=== PATIENT | male | born 1935 | race African-American/Black ===

== ENCOUNTER → 2016-12-22 | Outpatient (CLI) | payer MEDICARE ==
[~2016-12-22] MED LIST: AMLO1TAB95 PO; ASPI-482 PO; CRESTOR5 MG PO
--- NOTE | 2016-12-22 11:47 | RAD ---
Right hip, 2 views, 12/22/2016: History: Back and hip pain The bony structures are demineralized. No fracture or dislocation is evident. There is mild narrowing of the right hip joint. Numerous prostatic calcifications are present. IMPRESSION: No acute hip abnormality is detected. Lumbar spine, 3 views, 12/22/2016: History: Back and leg pain There is a mild right convexity lumbar scoliosis. The lumbar vertebral heights are well-maintained. There is moderate disc space narrowing with extensive endplate sclerosis and marginal spurring at L1-2 and L2-3. There is a lesser degree of spurring in the lower lumbar spine. There are moderate degenerative changes involving the facet joints bilaterally, particularly in the lower lumbar region. Aortoiliac calcific plaquing is present. IMPRESSION: 1. Moderate multilevel degenerative change. 2. Mild lumbar scoliosis. 3. No acute bony abnormality is detected.
== END | disposition home or self-care (01) ==
LOC: DXRADRC 10:56
PROVIDERS: ATTEND Nurse Practitioner Family
DX: M16.11 Unilateral primary osteoarthritis, right hip (principal); M41.86 Other forms of scoliosis, lumbar region
CPT/HCPCS: 72100; 73502

== ENCOUNTER 2017-05-25 20:20 | Inpatient (IN) | payer MEDICARE ==
[~2017-05-25] VITALS: Ht 165.1 cm; Wt 61.2 kg
[2017-05-25 20:56] LABS: BASO # 0.1 x10^3/uL (0.0-0.2); BASO % 1 % (0-3); EOS # 0.3 x10^3/uL (0.0-0.7); EOS % 4 % (0-3); HEMATOCRIT 46.4 % (39.0-53.0); HEMOGLOBIN 15.8 g/dL (13.0-17.5); LYMPH # 2.9 x10^3/uL (1.0-4.8); LYMPH % 39 % (24-48); MEAN CORPUSCULAR HEMOGLOBIN 30 pg (25-35); MEAN CORPUSCULAR HGB CONC 34 g/dL (31-37); MEAN CORPUSCULAR VOLUME 89 fL (79-100); MONO # 0.5 x10^3/uL (0.0-1.1); MONO % 7 % (0-9); NEUT # 3.6 x10^3uL (1.8-7.7); NEUT % 49 % (31-73); PLATELET COUNT 264 x10^3/uL (140-400); RED BLOOD COUNT 5.24 x10^6/uL (4.30-5.70); RED CELL DISTRIBUTION WIDTH 13.4 % (11.5-14.5); WHITE BLOOD COUNT 7.4 x10^3/uL (4.0-11.0)
--- NOTE | 2017-05-25 21:04 | RAD ---
CT scan of the head without contrast 05/25/2017 Clinical History: Weakness, fatigue and headaches. Technique: Unenhanced, contiguous, 5 mm axial sections were obtained through the head. Findings: No previous imaging studies are available for comparison. There is generalized parenchymal atrophy. Areas of decreased attenuation are seen within the periventricular and subcortical white matter of both cerebral hemispheres consistent with areas of small vessel ischemic disease. No acute parenchymal abnormality is seen. No extra-axial fluid collection is noted. No skull fracture is seen. Impression: No acute intracranial abnormality is seen. Electronically signed by: Adonis Christopher MD (05/25/2017 9:01 PM) [facility]
[2017-05-25 21:08] LABS: ALBUMIN 3.9 g/dL (3.4-5.0); ALBUMIN/GLOBULIN RATIO 0.8 (1.0-1.7); CALCIUM 9.7 mg/dL (8.5-10.1); CREATININE 1.3 mg/dL (0.7-1.3); GFR 64.3; POTASSIUM 3.8 mmol/L (3.5-5.1); TOTAL BILIRUBIN 0.7 mg/dL (0.2-1.0); TOTAL PROTEIN 8.9 g/dL (6.4-8.2)
--- NOTE | 2017-05-25 21:23 | ED.ADGEN ---
Adult General Chief Complaint Chief Complaint Left sided weakness HPI HPI Patient is a 81-year-old -Citizen Of The [place] male with h /o and prostate cancer and CVA who presents with left upper left lower extremity and left facial weakness sleep approximately 36 hours ago. Patient has history ofbe affecting left side. Patient states he's had difficulty walking been dragging his left leg. Also notable left facial droop which is new according to family members. Patientvision, difficulty swallowing, coughing, choking episodes, shortness of breath, palpitations history of A. fib or arrhythmia. Patient is not currently on anticoagulation therapy. No other acute symptoms or complaints. Patient's delayed in coming to the emergency department as he did not initially intend to seek care. However, upon family members visiting the patients patient coming to the emergency department. The patient is now agreeable to receiving care. Review of Systems Review of Systems ROS as per HPI. All other review symptoms are negative. All other systems were reviewed and found to be within normal limits, except as documented in this note. Allergies Allergies Allergies Coded Allergies Type Severity Reaction Last Updated Verified No Known Drug Allergies 01/22/14 No Physical Exam Physical Exam Constitutional: Well developed, well nourished, no acute distress, non-toxic appearance. [] HENT: Normocephalic, atraumatic, bilateral external ears normal, oropharynx moist, no oral exudates, nose normal. [] Eyes: PERRLA, EOMI, conjunctiva normal, no discharge. [] Neck: Normal range of motion, no tenderness, supple, no stridor. [] Cardiovascular:Heart rate regular rhythm, no murmur [] Lungs & Thorax: Bilateral breath sounds clear to auscultation [] Abdomen: Bowel sounds normal, soft, no tenderness. [] Skin: Warm, dry, no erythema. [] Back: No tenderness, no CVA tenderness. [] Extremities: No tenderness, no cyanosis, no clubbing, ROM intact, no edema. [] Neurologic: Alert and oriented X 3, Upper extremity weakness, left lower extremity weakness and decreased sensation. NIH stroke score of 10 per ER nurse assessment.[] Current Patient Data Vital Signs Vital Signs Date Time Temp Pulse Resp B/P (MAP) Pulse Ox O2 Delivery O2 Flow Rate FiO2 05/25/17 21:21 87 26 181/116 (137) 100 Room Air 05/25/17 20:20 98.3 Lab Results Laboratory Tests Test 05/25/17 20:37 05/25/17 21:03 White Blood Count 7.4 x10^3/uL (4.0-11.0) Red Blood Count 5.24 x10^6/uL (4.30-5.70) Hemoglobin 15.8 g/dL (13.0-17.5) Hematocrit 46.4 % (39.0-53.0) Mean Corpuscular Volume 89 fL (79-100) Mean Corpuscular Hemoglobin 30 pg (25-35) Mean Corpuscular Hemoglobin Concent 34 g/dL (31-37) Red Cell Distribution Width 13.4 % (11.5-14.5) Platelet Count 264 x10^3/uL (140-400) Neutrophils (%) (Auto) 49 % (31-73) Lymphocytes (%) (Auto) 39 % (24-48) Monocytes (%) (Auto) 7 % (0-9) Eosinophils (%) (Auto) 4 % (0-3) H Basophils (%) (Auto) 1 % (0-3) Neutrophils # (Auto) 3.6 x10^3uL (1.8-7.7) Lymphocytes # (Auto) 2.9 x10^3/uL (1.0-4.8) Monocytes # (Auto) 0.5 x10^3/uL (0.0-1.1) Eosinophils # (Auto) 0.3 x10^3/uL (0.0-0.7) Basophils # (Auto) 0.1 x10^3/uL (0.0-0.2) Sodium Level 141 mmol/L (136-145) Potassium Level 3.8 mmol/L (3.5-5.1) Chloride Level 103 mmol/L (98-107) Carbon Dioxide Level 28 mmol/L (21-32) Anion Gap 10 (6-14) Blood Urea Nitrogen 20 mg/dL (8-26) Creatinine 1.3 mg/dL (0.7-1.3) Estimated GFR (Cockcroft-Gault) 64.3 BUN/Creatinine Ratio 15 (6-20) Glucose Level 133 mg/dL (70-99) H Calcium Level 9.7 mg/dL (8.5-10.1) Total Bilirubin 0.7 mg/dL (0.2-1.0) Aspartate Amino Transferase (AST) 22 U/L (15-37) Alanine Aminotransferase (ALT) 21 U/L (16-63) Alkaline Phosphatase 104 U/L (46-116) Total Protein 8.9 g/dL (6.4-8.2) H Albumin 3.9 g/dL (3.4-5.0) Albumin/Globulin Ratio 0.8 (1.0-1.7) L Prothrombin Time 10.6 SEC (9.4-11.4) Prothrombin Time INR 1.0 (0.9-1.1) PTT 21 SEC (23-33) L EKG EKG [EKG: Sinus rhythm, reviewed.] Radiology/Procedures Radiology/Procedures [CT head: No acute findings per radiology report.] Course & Med Decision Making Course & Med Decision Making Pertinent Labs and Imaging studies reviewed. (See chart for details) [Patient With left-sided weakness with facial droop, onset greater than 36 hours prior to ED arrival. Patient is not a candidate for intervention at this time. NIH stroke score of 10 which I suspect is accommodation of acute and chronic deficits. Patient given aspirin. Will admit to the ICU. Dr. Barnett to see. ] Final Impression Final Impression [1. Cva 2. left sided weakness] Problems: Dragon Disclaimer Dragon Disclaimer This electronic medical record was generated, in whole or in part, using a voice recognition dictation system. KAUSHIK THAKUR DO May 25, 2017 21:23
[2017-05-25] MEDS ORDERED: ONDANSETRON PF 4 MG/2 ML VIAL. IV PRN (21:45)
[2017-05-25 23:00] VITALS: BP 138/61
[2017-05-26] MEDS ORDERED: TIMO10DR5 EACHEYE (01:04)
[2017-05-26] MEDS ORDERED: ATOR20TA58 PO (01:04)
[2017-05-26] MEDS ORDERED: METF10002 PO (01:04)
[2017-05-26] MEDS ORDERED: LOSA100T6 PO (01:04)
[2017-05-26 01:49] VITALS: BP 138/61
[2017-05-26 03:06] VITALS: BP 136/64
--- NOTE | 2017-05-26 06:20 | EKG ---
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
[2017-05-26 06:45] LABS: BASO % 1 % (0-3); EOS # 0.2 x10^3/uL (0.0-0.7); EOS % 3 % (0-3); HEMATOCRIT 42.1 % (39.0-53.0); HEMOGLOBIN 14.2 g/dL (13.0-17.5); LYMPH # 1.9 x10^3/uL (1.0-4.8); LYMPH % 34 % (24-48); MEAN CORPUSCULAR HEMOGLOBIN 30 pg (25-35); MEAN CORPUSCULAR HGB CONC 34 g/dL (31-37); MEAN CORPUSCULAR VOLUME 89 fL (79-100); MONO # 0.4 x10^3/uL (0.0-1.1); MONO % 8 % (0-9); NEUT # 3.1 x10^3uL (1.8-7.7); NEUT % 54 % (31-73); PLATELET COUNT 235 x10^3/uL (140-400); RED BLOOD COUNT 4.75 x10^6/uL (4.30-5.70); RED CELL DISTRIBUTION WIDTH 13.3 % (11.5-14.5); WHITE BLOOD COUNT 5.7 x10^3/uL (4.0-11.0)
[2017-05-26 06:55] LABS: CALCIUM 8.9 mg/dL (8.5-10.1); CREATININE 1.1 mg/dL (0.7-1.3); GFR 77.9; POTASSIUM 3.8 mmol/L (3.5-5.1)
[2017-05-26] MEDS: metFORMIN 500 MG TABLET PO SCH (08:52)
[2017-05-26] MEDS: ATORVASTATIN CALCIUM 20 MG TABLET PO SCH (08:52)
[2017-05-26] MEDS: LOSARTAN 50 MG TABLET. PO SCH (08:52)
[2017-05-26] MEDS: TIMOLOL 0.5% OPHTH SOLUTION 5ML BOTTLE. OU SCH ×2 (08:52→20:47)
--- NOTE | 2017-05-26 08:52 | RAD ---
INDICATION: SOA COMPARISON: 07/04/2005 FINDINGS: Single view of chest obtained. Calcific atherosclerosis without enlargement of cardiac silhouette. Multiple calcified lymph nodes in mediastinum and calcified nodules which can be the sequela of old granulomatous disease. There are some sclerotic foci seen at the osseous structures including partially visualized humerus bilaterally. No definite new focal airspace consolidation IMPRESSION: No definite new focal airspace consolidation. Calcified lymph nodes in mediastinum and calcified nodules in the lungs which can be sequela of old granulomatous disease. There is some suspected sclerotic foci at the partially visualized proximal humerus. Most likely cause is bone island unless the patient has a history of neoplasm.
[2017-05-26] MEDS ORDERED: ASPIRIN ENTERIC COATED 81 MG TABLET.DR. PO SCH (09:00)
[2017-05-26 11:34] VITALS: BP 175/101
[2017-05-26] MEDS: ASPIRIN 325 MG TABLET PO SCH (13:06)
--- NOTE | 2017-05-26 15:26 | RAD ---
INDICATION: Left-sided weakness COMPARISON: None. TECHNIQUE: Color, grayscale and doppler ultrasound images obtained of the carotid system bilaterally. Percent stenosis is estimated using criteria that correlates with NASCET methodology. FINDINGS: Peak systolic velocities are as follows in cm/s: Right Carotid System: CCA: 96 ICA: 75 ECA: 50 ICA/CCA Ratio 1.3 Left Carotid System: CCA: 78 ICA: 87 ECA: 53 ICA/CCA Ratio 1.3 Vertebral arteries are antegrade bilaterally. There is some scattered plaque seen as well as intimal thickening. IMPRESSION: 1. No hemodynamically significant stenosis of the internal carotid arteries bilaterally.
--- NOTE | 2017-05-26 17:09 | HP ---
ADMIT DATE: 05/25/2017 HISTORY OF PRESENT ILLNESS: The patient is an 81-year-old -[place] male patient who apparently was brought to the Emergency Room by his family who noted that he has left upper and left lower extremity weakness and left facial weakness that started about 36 hours ago before he arrived. The patient has history of left-sided CVA that has been happened about 20-25 years ago. His daughter noted that when he is walking, was dragging his left leg. She also noted that he has left facial droop that is new according to the family members; however, the patient denied any other complaints, particularly denied any headache, difficulty swallowing, any change in his vision and the patient is not on any anticoagulation. He was evaluated in the Emergency Room, has had a CT scan of the head, which showed that there is generalized parenchymal atrophy, areas of decreased attenuation are seen within the periventricular and subcortical white matter of both cerebral hemispheres consistent with areas of small vessel ischemic disease, no acute parenchymal abnormality seen. No extraaxial fluid collection is noted. No skull fracture is seen. The patient was admitted for further evaluation to arrange for bilateral carotid Doppler, check her fasting lipid profile, to consult Dr. Park and to continue with all his other medications. Obviously, he was not a candidate for any thrombolytic therapy given that he was out of the window of therapy. 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 PAST SURGICAL HISTORY: Significant for bilateral cataract extraction. ALLERGIES: No known drug allergies. MEDICATIONS: He is currently on aspirin 81 mg once a day, atorvastatin 20 mg at bedtime, losartan potassium 100 mg once a day, metformin 1000 mg with breakfast, timolol maleate for Timoptic 1 drop to both eyes twice a day. FAMILY HISTORY: He has two brothers, older one of prostate cancer and one of sepsis. One sister younger and healthy. SOCIAL HISTORY: He is , lives with his , has 5 daughters and 4 sons. He is an ex-smoker, quit about 25 years ago, used to smoke a pack a day and smoked for a long time. He also used to be an ex-alcoholic, quit drinking alcohol 25 years ago. 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 REVIEW OF SYSTEMS: He has bilateral cataract extraction and also glaucoma, but denied any macular degeneration. Denied any earache, tinnitus or sensorineural deafness. Denied any nosebleeds, stuffy nose or postnasal drip. Denied any sore throat, sore tongue, toothache, hoarseness of voice or difficulty swallowing. Denied any nausea, vomiting, diarrhea or constipation. Denied any hematemesis, melena or hematochezia. Denied any dysuria, frequency or hematuria. Denied any chest pain, shortness of breath, orthopnea, paroxysmal nocturnal dyspnea. Denied any cough, phlegm or hemoptysis. Denied any chills, rigors or fever when I examined him. PHYSICAL EXAMINATION: GENERAL: On arrival to the Emergency Room, he looked well and was clearly in no apparent respiratory distress, pale, but not jaundiced, cyanosis, or thyromegaly. No jugular venous distention. No limb edema. VITAL SIGNS: His heart rate was 85, blood pressure was 169/93, temperature was 98, respiratory rate was 19, and oxygen saturation was 97%. HEAD, EYES, EARS, NOSE, AND THROAT: Showed normocephalic, atraumatic. NECK: Supple. HEART: Showed normal first and second heart sounds with no gallop, rub or murmur. CHEST: Clear to auscultation. No crepitation or rhonchi. ABDOMEN: Distended, soft, and nontender. NEUROLOGIC: He was awake, alert, responding appropriately. He has left-sided facial droop and left-sided weakness, which is about 4/5 on the left upper and left lower extremity. LABORATORY DATA: His lab work on admission showed that his white cell count was 7400, hemoglobin 15.8, hematocrit 46, MCV 89, and platelet count 264,000. His serum sodium 141, potassium 3.8, chloride 103, bicarbonate 28, anion gap of 10, BUN 20, creatinine 1.3, estimated GFR was 64 mL per minute. His glucose was 133, calcium was 9.7. Total bilirubin, AST, ALT, alkaline phosphatase were normal. Total protein was 8.9, albumin was 3.9. His prothrombin time was 10.6, INR 1, aPTT was 21. His CT scan of the head showed that there is generalized parenchymal atrophy, areas of decreased attenuation are seen within the periventricular and subcortical white matter of both cerebral hemispheres consistent with areas more vessel ischemic disease, no acute parenchymal abnormality seen. No extraaxial fluid collection is noted. No skull fracture is seen. He did have a chest x-ray, which showed that he has no definite new focal airspace consolidation, calcific lymph nodes in the mediastinum and calcified nodules in the lung, which can be sequelae of old granulomatous disease. There is some suspected sclerotic foci at the partially visualized proximal humerus most likely because of bone, and the patient has history of neoplasm. IMPRESSION: In summary, this is an 81-year-old -[place] male patient who came with left-sided facial droop with left-sided weakness about 36 hours after the onset of the symptoms. He is ambulatory, although he obviously has weakness in the left side. CT scan showed no evidence of acute infarct or intracranial hemorrhage. PLAN: My plan is to arrange for him to have a carotid Doppler ultrasound. We will consult Dr. Park, check his fasting lipid profile, check hemoglobin A1c, and consult Physical and occupational therapy. The patient might benefit from rehabilitation probably in a swing bed. THUY FLORES MD DR: BONG/wolfgang JOB#: [id number] / [id number]
[2017-05-26 17:30] VITALS: BP 148/86
[2017-05-27 06:28] LABS: ANION GAP 8 (6-14); BLOOD UREA NITROGEN 19 mg/dL (8-26); CALCIUM 8.8 mg/dL (8.5-10.1); CARBON DIOXIDE 28 mmol/L (21-32); CHLORIDE 108 mmol/L (98-107); CREATININE 1.2 mg/dL (0.7-1.3); GFR 70.5; GLUCOSE 116 mg/dL (70-99); POTASSIUM 3.7 mmol/L (3.5-5.1); SODIUM 144 mmol/L (136-145)
[2017-05-27 06:30] VITALS: BP 139/71
[2017-05-27] MEDS: TIMOLOL 0.5% OPHTH SOLUTION 5ML BOTTLE. OU SCH ×2 (08:17→20:20)
[2017-05-27] MEDS: metFORMIN 500 MG TABLET PO SCH (08:17)
[2017-05-27] MEDS: ASPIRIN 325 MG TABLET PO SCH (08:17)
[2017-05-27] MEDS: LOSARTAN 50 MG TABLET. PO SCH (08:18)
[2017-05-27] MEDS: ATORVASTATIN CALCIUM 20 MG TABLET PO SCH (08:18)
[2017-05-27 09:24] LABS: C REACTIVE PROTEIN < 0.5 mg/L (0-3.3)
--- NOTE | 2017-05-27 11:18 | PN ---
DATE: 05/26/2017 SUBJECTIVE: The patient is resting, sitting propped up in bed, in no apparent respiratory distress. He is awake and alert. On questioning him, he denied any complaint. Continued to have some weakness in the left upper and left lower extremity. However, he was able to ambulate with physical therapy with standby assist. PHYSICAL EXAMINATION: GENERAL: When I examined him this afternoon, he looked well and was slightly pale, but no jaundice, cyanosis, or thyromegaly. No jugular venous distension. No lower limb edema. VITAL SIGNS: His heart rate was 83, blood pressure 158/87, temperature was 98, respiratory rate was 19 and oxygen saturation was 100% on room air. HEAD, EYES, EARS, NOSE AND THROAT: Normocephalic, atraumatic. NECK: Supple. HEART: Showed normal first and second heart sounds with no gallop, rub or murmur. CHEST: Clear to auscultation. No crepitation or rhonchi. ABDOMEN: Distended, soft, nontender. No guarding or rigidity. No organomegaly. Hernial orifices intact. Bowel sounds normal. NEUROLOGIC: He is awake, alert, responding appropriately, has left-sided facial droop, left-sided hemiparesis. His intake and output incompletely recorded. LABORATORY DATA: As of this morning showed a white cell count 5700, hemoglobin 14, hematocrit 42, MCV 89 and platelet count of 235,000. His serum sodium 143, potassium 3.8, chloride 106, bicarbonate 28, anion gap of 9, BUN 16, creatinine 1.1, estimated GFR was 78 mL per minute, his glucose 114, calcium was 8.9. ASSESSMENT AND PLAN: 1. New onset left-sided weakness started about 36 hours prior to arrival to the Emergency Room. He was not a candidate for any thrombolytic therapy. 2. Hypertension, hyperlipidemia, type 2 diabetes, previous episode of left-sided weakness and prostate cancer. I will check his fasting lipid profile, hemoglobin A1c. Await Doppler ultrasound of both carotid arteries and continue with physical and occupational therapy. THUY FLORES MD DR: BONG/wolfgang JOB#: [id number] / [id number]
[2017-05-27 11:32] VITALS: BP 135/79
[2017-05-27 18:30] VITALS: BP 119/74
[2017-05-27 22:07] LABS: HEMOGLOBIN A1C 6.1 % (4.8-5.6)
[2017-05-27 23:00] VITALS: BP 120/70
--- NOTE | 2017-05-28 01:42 | CONS ---
DATE OF CONSULTATION: 05/26/2017 REFERRING PHYSICIAN: Agustin Barnett MD REASON FOR CONSULTATION: Rule out stroke or TIA. HISTORY OF PRESENT ILLNESS: This is an 81-year-old -[place] male who was admitted through Emergency Room yesterday after he presented with left-sided weakness and difficulty to walk. The symptoms began approximately 36 hours prior to admission. He denies headaches, visual disturbances, nausea, vomiting, chest pain, shortness of breath or palpitation, dysarthria, dysphagia or paraesthesia. Initial nonenhanced head CT scan revealed no evidence of acute intracranial process, but it shows chronic small vessel ischemic changes. PAST MEDICAL HISTORY: Significant for stroke several days ago, affected his left side; had diabetes mellitus, hypertension, prostate cancer, hyperlipidemia and glaucoma. SOCIAL HISTORY: The patient lives independently. He denies smoking, alcohol drinking, or illicit drug use. FAMILY HISTORY: His father had prostate cancer. His mother had gastric cancer. CURRENT MEDICATIONS: Metformin 1000 mg twice daily, Lipitor 20 mg daily, timolol maleate eye drops 1 twice daily, losartan 100 mg daily and aspirin 81 mg daily. ALLERGIES: No known drug allergies. REVIEW OF SYSTEMS: A 10-point review of system was performed and as mentioned above in the history of present illness, otherwise unremarkable. PHYSICAL EXAMINATION: GENERAL: Well-developed, well-nourished -[place] male, not in acute distress. He weighs 135 pounds and height 65 inches. VITAL SIGNS: Blood pressure 136/64, respiratory rate 16, pulse is 78 and regular, temperature 98.2 and oxygen saturation 99% on room air. HEENT: Normocephalic, atraumatic, otherwise unremarkable. NECK: Supple. Negative for carotid bruit, lymphadenopathy, thyromegaly or JVD. LUNGS: Clear to A and P. CARDIOVASCULAR: Regular rate and rhythm, normal S1, S2. There is no S3, S4 or murmur. ABDOMEN: Soft. Bowel sounds positive. EXTREMITIES: Negative for cyanosis, clubbing or pitting edema. NEUROLOGICAL EXAM: Mental Status: The patient is alert and oriented x 3. Speech is fluent. There is no language dysfunction. Memory, judgment and abstract thinking are normal. The patient denies hallucination or delusion. CRANIAL NERVES: Visual bautista are full. The pupils are reactive to light and accommodation. The extraocular movements are intact. There is no nystagmus. There is no facial motor or sensory deficit. Hearing is intact bilaterally. The palate is elevated symmetrically. Sternocleidomastoid muscles are powerful bilaterally. The patient shrugs his shoulders symmetrically and protrudes his tongue in the midline without fasciculation or atrophy. MOTOR EXAMINATION: No focal muscle bulk was seen. The tone is normal. The strength is 4/5 in the left upper and lower extremities. The patient has moderate left foot drop. Sensory examination revealed diminished pinprick and light touch senses over the left upper and lower extremity compared to those on the right side. Deep tendon reflexes were slightly hyperreflexive at 3/5 on the left upper and lower extremities compared to a normal reflex on the right side. Gait: The patient has steady stance. He is able to walk without assistance, but he has steppage gait due to a left foot drop. Coordination: He has normal coordination. He has abnormal left [id number] and ltve-ui-saxn secondary to previous stroke. DIAGNOSTIC DATA: Chest x-ray revealed no acute cardiopulmonary process. Nonenhanced head CT scan revealed no acute intracranial abnormalities, but shows chronic periventricular, subcortical white matter ischemic changes. LABORATORY DATA: CBC revealed white blood cells of 5.7 thousand, hemoglobin 14.2, hematocrit 42.1 and platelet count 235,000. Chemistry revealed sodium of 143, potassium 3.8, chloride 106, CO2 of 28, BUN 18, creatinine 1.1, glucose 114 and calcium 8.9. Urinalysis negative for urinary tract infections and urine drug screen is negative. IMPRESSION: 1. Residual left hemiparesis and left hemisensory deficit due to previous stroke, resulted in left foot drop and steppage gait. 2. Multiple medical problems include hypertension, hyperlipidemia, diabetes mellitus type 2 and prostate cancer. RECOMMENDATIONS: 1. We will start the patient on aspirin 325 mg p.o. daily. 2. Carotid Doppler study. 3. Physical therapy. 4. Continue with current management initiated by Dr. Barnett. M Alek DEL TORO MD DR: DOMINIQUE/wolfgang JOB#: [id number] / [id number]
[2017-05-28 03:00] VITALS: BP 118/78
[2017-05-28 06:39] VITALS: BP 115/66
[2017-05-28 06:43] LABS: HEMATOCRIT 39.9 % (39.0-53.0); HEMOGLOBIN 13.5 g/dL (13.0-17.5); RED BLOOD COUNT 4.5 x10^6/uL (4.30-5.70); RED CELL DISTRIBUTION WIDTH 13.4 % (11.5-14.5); WHITE BLOOD COUNT 5.5 x10^3/uL (4.0-11.0)
[2017-05-28 06:59] LABS: ALBUMIN 2.9 g/dL (3.4-5.0); ALBUMIN/GLOBULIN RATIO 0.8 (1.0-1.7); CALCIUM 8.6 mg/dL (8.5-10.1); CREATININE 1.1 mg/dL (0.7-1.3); GFR 77.9; TOTAL BILIRUBIN 0.6 mg/dL (0.2-1.0); TOTAL PROTEIN 6.6 g/dL (6.4-8.2)
[2017-05-28 07:38] VITALS: BP 140/72
[2017-05-28] MEDS: ASPIRIN 325 MG TABLET PO SCH (08:12)
[2017-05-28] MEDS: metFORMIN 500 MG TABLET PO SCH (08:12)
[2017-05-28] MEDS: ATORVASTATIN CALCIUM 20 MG TABLET PO SCH (08:13)
[2017-05-28] MEDS: LOSARTAN 50 MG TABLET. PO SCH (08:13)
[2017-05-28] MEDS: TIMOLOL 0.5% OPHTH SOLUTION 5ML BOTTLE. OU SCH (08:14)
--- NOTE | 2017-05-28 11:07 | PN ---
DATE: 05/27/2017 REFERRING PHYSICIAN: Agustin Barnett MD SUBJECTIVE: The patient denies any new medical or neurological complaints. He continues to have mild left sided weakness includes upper and lower extremities. OBJECTIVE: GENERAL: Well developed, well nourished -[place] male, not in acute distress. VITAL SIGNS: Blood pressure 135/79, respiratory rate 20, pulse is 99, temperature 98, oxygen saturation 97% on room air. HEENT: Normocephalic, atraumatic, otherwise unremarkable. NECK: Supple. Negative for carotid bruit, lymphadenopathy or thyromegaly. LUNGS: Clear to A and P. CARDIOVASCULAR: Regular rate and rhythm, normal S1, S2. No S3, S4. ABDOMEN: Soft. Bowel sounds positive. EXTREMITIES: Negative for cyanosis, clubbing or pitting edema. NEUROLOGICAL EXAM: Mental Status: The patient is alert and oriented x 3. The speech is fluent. There is no language dysfunction, otherwise unremarkable. Cranial nerves are intact. Motor examination revealed no focal muscle bulk was seen. The strength is 4/5 in the left upper and lower extremities and 5/5 on the right side. Sensory examination revealed slightly diminished pinprick and light touch senses over the left upper and lower extremities compared to those on the right side. Deep tendon reflexes were symmetric and slightly hyperactive on the left side without pathologic responses. gait due to left foot drop secondary to previous stroke. The coordination is normal at [id number] and [id number]-ge-[id number] on the right side. IMPRESSION: 1. Residual left hemiparesis and moderately heavy sensory deficit, likely due to previous stroke. There is no evidence of new acute intracranial process or significant carotid artery stenosis. 2. Multiple risk factors for stroke include hypertension, hyperlipidemia and diabetes mellitus. RECOMMENDATIONS: 1. Continue with physical therapy. 2. Continue with current management initiated by Dr. Barnett along with aspirin 325 mg daily. M Alek DEL TORO MD DR: DOMINIQUE/wolfgang JOB#: [id number] / [id number]
[2017-05-28 11:44] VITALS: BP 126/75
[2017-05-28 14:32] VITALS: BP 117/72
--- NOTE | 2017-05-28 17:07 | PN ---
DATE: 05/27/2017 SUBJECTIVE: The patient is sitting comfortably in his wheelchair, chatting with his family, in no apparent distress. On questioning him, denied any complaint. Nursing staff did not voice any concern. Apparently, the patient has been working with physical therapist here and the family opted to admit him to swing bed here in the hospital. His Doppler ultrasound was negative. PHYSICAL EXAMINATION: GENERAL: When I examined him, he looked pale, but no jaundice, cyanosis, or thyromegaly. No jugular venous distention. No limb edema. VITAL SIGNS: His heart rate was 99, blood pressure 135/79, temperature was 98, respiratory rate 20, and oxygen saturation was 97%. HEAD, EYES, EARS, NOSE AND THROAT: Showed normocephalic, atraumatic. NECK: Supple. HEART: Showed normal first and second sounds. No gallop, rub or murmur. CHEST: Clear to auscultation. No crepitation or rhonchi. ABDOMEN: Distended, soft, nontender. No guarding or rigidity. No organomegaly. All hernial orifice intact. Bowel sounds normal. NEUROLOGIC: He was awake, alert, responding appropriately. Cranial nerves intact. left-sided weakness. His intake over the last 24 hours and output were incompletely recorded. LABORATORY DATA: Showed his white cell count was 5700, hemoglobin 14, hematocrit 42, MCV 89 and platelet count 235,000. His serum sodium was 144, potassium 3.7, chloride 108, bicarbonate 28, anion gap of 8, BUN 19, creatinine 1.2, estimated GFR was 70 mL per minute. His glucose was 116, calcium was 8.8. His triglycerides were , VLDL was 13, and HDL cholesterol was 57, ratio was 2. ASSESSMENT: 1. New onset left-sided weakness started about 36 hours prior to arrival to the Emergency Room. He was not a candidate for any thrombolytic therapy. 2. Hypertension. 3. Hyperlipidemia. 4. Type 2 diabetes mellitus. 5. Previous episode of left-sided weakness. 6. Prostate cancer. PLAN: We will continue with all his current medication. Continue with physical and occupational therapy. We will admit him to swing bed probably tomorrow or Monday. THUY FLORES MD DR: BONG/wolfgang JOB#: [id number] / [id number]
--- NOTE | 2017-05-29 10:58 | PN ---
DATE: 05/28/2017 SUBJECTIVE: The patient is sitting comfortably in his chair, in no apparent respiratory distress. On questioning him, he denied any complaint. The nursing staff did not voice any concern and stated that he had an uneventful night. PHYSICAL EXAMINATION: GENERAL: When I examined him, he looked pale, somewhat cachectic, no jaundice, cyanosis, or thyromegaly. No jugular venous distension. No limb edema. VITAL SIGNS: His heart rate was 79, blood pressure was 126/75, temperature was 98.1, respiratory rate was 20, and oxygen saturation was 99% on room air. HEAD, EYES, EARS, NOSE AND THROAT: Shows normocephalic, atraumatic. NECK: Supple. HEART: Showed normal first and second sounds. No gallop, rub or murmur. CHEST: Clear to auscultation. No crepitation or rhonchi. ABDOMEN: Distended, soft, nontender. No guarding or rigidity. No organomegaly. All hernial orifices are intact. Bowel sounds normal. NEUROLOGIC: He is awake, alert, responding appropriately, continue to have mild left-sided facial droop and mild left-sided weakness. His intake over the last 24 hours was 950, output was 600. LABORATORY DATA: Showed a white cell count of 5500, hemoglobin 13.5, hematocrit 40, MCV 89 and platelet count 213,000. Sedimentation rate was 12 mm per hour. His chemistry showed his serum sodium to be 144, potassium 4, chloride 110, bicarbonate 27, anion gap of 7, BUN 19, creatinine 1.1, estimated GFR was 77 mL per minute, his glucose 117. Hemoglobin A1c was 6.1%. Calcium was 8.6. Total bilirubin, AST, ALT, alkaline phosphatase were normal. Total protein 6.6, albumin was 2.9. C-reactive protein was 0.5 mg/dL. Serum triglycerides were 68, cholesterol 128, LDL cholesterol was 58, VLDL was 13, and HDL was 57, the ratio of 2. ASSESSMENT: 1. New onset left-sided weakness, started about 36 hours prior to arrival to the Emergency Room, he was not a candidate for any thrombolytic therapy. 2. Hypertension. 3. Hyperlipidemia. 4. Type 2 diabetes mellitus, seems to be well controlled. His hemoglobin A1c was only 6.1%. 5. Previous episode of left-sided weakness. 6. Prostate cancer. PLAN: To swing the patient tomorrow to continue with inpatient rehab. THUY FLORES MD DR: BONG/wolfgang JOB#: [id number] / [id number]
--- NOTE | 2017-05-29 11:46 | PN ---
DATE: SUBJECTIVE: The patient denies any new medical or neurological complaints. OBJECTIVE: GENERAL: Well developed and well nourished -[place] man, in no acute distress. VITAL SIGNS: Blood pressure 126/75, respiratory rate 20, pulse is 79, temperature 98.1, oxygen saturation 99% on room air. HEENT: Normocephalic, atraumatic, otherwise, unremarkable. NECK: Supple. Negative for carotid bruit, lymphadenopathy or thyromegaly. LUNGS: Clear to A and P. CARDIOVASCULAR: Regular rate and rhythm, normal S1, S2. There is no S3, S4, or murmur. ABDOMEN: Soft. Bowel sounds positive. EXTREMITIES: Negative for cyanosis, clubbing, or pitting edema. NEUROLOGIC: 1. Mental Status: The patient is alert and oriented x3. Speech is fluent. There is no language dysfunction. Memory, judgment and abstract thinking are normal. The patient denies hallucination or delusion. 2. Cranial nerves are intact. 3. Motor examination: No focal muscle bulk was seen. The tone is normal. The strength is 4/5 in the left upper and lower extremities. 4. Sensory examination slightly diminished pinprick and light touch senses over the left upper and lower extremities compared to those on the right side. 5. Deep tendon reflexes are symmetric and active without pathology responses. 6. Gait. The patient walked with mild limping on the left side secondary to mild weakness, but he uses a walker for ambulation. LABORATORY DATA: CBC revealed white blood cells of 5.5 thousand, hemoglobin 13.5, hematocrit 39.9, platelet count 213,000. Chemistry reveals sodium of 144, potassium 4, chloride 110, CO2 27, BUN 19, creatinine 1.1, glucose 117, calcium 8.6. Lipid profile is normal. IMPRESSION: 1. Residual of left-sided hemiparesis with mild left hemisensory deficit. 2. Multiple medical problems include hypertension, diabetes mellitus type 2, and hyperlipidemia. RECOMMENDATION: Continue with current management initiated by Dr. Barnett including aspirin 325 mg p.o. daily. M Alek DEL TORO MD DR: DOMINIQUE/wolfgang JOB#: [id number] / [id number]
== END 2017-05-28 18:04 | disposition swing bed (61) | DRG 69 ==
LOC: ER 20:20 → ICU 21:30 → 1 SOUTH 05-28 17:40
PROVIDERS: ADMIT Internal Medicine; ATTEND Internal Medicine
DX: G45.9 Transient cerebral ischemic attack, unspecified (principal); I48.91 Unspecified atrial fibrillation; I69.354 Hemiplegia and hemiparesis following cerebral infarction affecting left non-dominant side; E11.9 Type 2 diabetes mellitus without complications; R13.10 Dysphagia, unspecified; E78.5 Hyperlipidemia, unspecified; H40.9 Unspecified glaucoma; I10 Essential (primary) hypertension; F10.21 Alcohol dependence, in remission; Z79.82 Long term (current) use of aspirin; Z80.0 Family history of malignant neoplasm of digestive organs; Z80.42 Family history of malignant neoplasm of prostate; Z85.46 Personal history of malignant neoplasm of prostate; Z87.891 Personal history of nicotine dependence; Z98.41 Cataract extraction status, right eye; Z98.42 Cataract extraction status, left eye; I69.392 Facial weakness following cerebral infarction
CPT/HCPCS: 36415; 70450; 71045; 80048; 80053; 80061; 83036; 85025; 85027; 85610; 85651; 85730; 86140; 87641; 93005; 93880; 97110; 97530; 99285-25

== ENCOUNTER 2017-05-28 16:15 | Inpatient (IN) | payer MEDICARE ==
[~2017-05-28] VITALS: Ht 165.1 cm; Wt 52.6 kg
[~2017-05-28 16:15] MED LIST changes: +ATOR20TA58 PO; +LOSA100T6 PO; +METF10002 PO; +TIMO10DR5 EACHEYE
[2017-05-28 18:56] VITALS: BP 166/80
[2017-05-28] MEDS: TIMOLOL 0.5% OPHTH SOLUTION 5ML BOTTLE. OU SCH (21:56)
[2017-05-28] MEDS: ATORVASTATIN CALCIUM 20 MG TABLET PO SCH (21:57)
[2017-05-29 05:27] VITALS: BP 142/79
[2017-05-29] MEDS: ASPIRIN ENTERIC COATED 81 MG TABLET.DR. PO SCH (08:15)
[2017-05-29] MEDS: metFORMIN 500 MG TABLET PO SCH (08:15)
[2017-05-29] MEDS: TIMOLOL 0.5% OPHTH SOLUTION 5ML BOTTLE. OU SCH ×2 (08:15→16:00)
[2017-05-29] MEDS: LOSARTAN 50 MG TABLET. PO SCH (08:16)
[2017-05-29 15:28] VITALS: BP 135/86
[2017-05-29 19:34] VITALS: BP 145/75
[2017-05-29] MEDS: ATORVASTATIN CALCIUM 20 MG TABLET PO SCH (20:49)
--- NOTE | 2017-05-30 00:49 | PN ---
DATE: 05/28/2017 SUBJECTIVE: The patient continued to complain of left-sided weakness, he denies any new medical or neurological complaints. OBJECTIVE: GENERAL: Well-developed, well-nourished -Q[place] male, not in acute distress. VITAL SIGNS: Blood pressure 142/79, respiratory rate 18, pulse is 71, temperature 98.4, oxygen saturation 98% on room air. HEENT: Normocephalic, atraumatic, otherwise unremarkable. NECK: Supple. Negative for carotid bruit, lymphadenopathy or thyromegaly. LUNGS: Clear to A and P. CARDIOVASCULAR: Regular rate and rhythm, normal S1, S2. ABDOMEN: Soft. Bowel sounds positive. EXTREMITIES: Negative for cyanosis, clubbing or pitting edema. NEUROLOGIC: Mental status is normal. Cranial nerves are intact. No focal muscle bulk was seen. The tone is normal. The strength is 4/5 in the left upper and lower extremities. Sensory examination revealed slightly diminished pinprick and light touch senses over the left upper and lower extremities compared to those on the right side. Deep tendon reflexes are symmetric and active without pathologic responses. Gait: The patient uses a walker for ambulation. The patient had gait due to moderate left footdrop. IMPRESSION: 1. 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 2. Multiple medical problems include hypertension, hyperlipidemia, diabetes mellitus type 2, and prostate cancer. RECOMMENDATIONS: Continue with current management and physical therapy. M Alek DEL TORO MD DR: DOMINIQUE/wolfgang JOB#: [id number] / [id number]
[2017-05-30] MEDS: TIMOLOL 0.5% OPHTH SOLUTION 5ML BOTTLE. OU SCH ×2 (04:11→16:43)
[2017-05-30 05:48] VITALS: BP 169/94
[2017-05-30] MEDS: ASPIRIN ENTERIC COATED 81 MG TABLET.DR. PO SCH (08:11)
[2017-05-30] MEDS: metFORMIN 500 MG TABLET PO SCH (08:11)
[2017-05-30] MEDS: LOSARTAN 50 MG TABLET. PO SCH (08:12)
[2017-05-30 15:53] VITALS: BP 142/86
[2017-05-30] MEDS: ATORVASTATIN CALCIUM 20 MG TABLET PO SCH (20:39)
[2017-05-31] MEDS: TIMOLOL 0.5% OPHTH SOLUTION 5ML BOTTLE. OU SCH ×2 (04:00→16:14)
[2017-05-31 05:33] VITALS: BP 134/74
[2017-05-31] MEDS: metFORMIN 500 MG TABLET PO SCH (08:12)
[2017-05-31] MEDS: ASPIRIN ENTERIC COATED 81 MG TABLET.DR. PO SCH (08:12)
[2017-05-31] MEDS: LOSARTAN 50 MG TABLET. PO SCH (08:13)
[2017-05-31 15:39] VITALS: BP 121/80
[2017-05-31] MEDS: ATORVASTATIN CALCIUM 20 MG TABLET PO SCH (20:22)
[2017-06-01] MEDS: TIMOLOL 0.5% OPHTH SOLUTION 5ML BOTTLE. OU SCH ×3 (04:00→21:18)
[2017-06-01 05:53] VITALS: BP 130/79
[2017-06-01] MEDS: ASPIRIN ENTERIC COATED 81 MG TABLET.DR. PO SCH (08:56)
[2017-06-01] MEDS: metFORMIN 500 MG TABLET PO SCH (08:56)
[2017-06-01] MEDS: LOSARTAN 50 MG TABLET. PO SCH (08:57)
[2017-06-01 15:00] VITALS: BP 112/76
[2017-06-01 18:24] VITALS: BP 123/78
[2017-06-01 20:43] VITALS: BP 115/76
[2017-06-01] MEDS: ATORVASTATIN CALCIUM 20 MG TABLET PO SCH (21:14)
[2017-06-02 06:04] VITALS: BP 126/71
[2017-06-02] MEDS: LOSARTAN 50 MG TABLET. PO SCH (08:10)
[2017-06-02] MEDS: metFORMIN 500 MG TABLET PO SCH (08:11)
[2017-06-02] MEDS: ASPIRIN ENTERIC COATED 81 MG TABLET.DR. PO SCH (08:11)
[2017-06-02] MEDS: TIMOLOL 0.5% OPHTH SOLUTION 5ML BOTTLE. OU SCH (16:00)
[2017-06-02 16:10] VITALS: BP 121/75
[2017-06-02] MEDS: ATORVASTATIN CALCIUM 20 MG TABLET PO SCH (20:28)
[2017-06-03] MEDS: TIMOLOL 0.5% OPHTH SOLUTION 5ML BOTTLE. OU SCH ×2 (04:36→16:00)
[2017-06-03 05:39] VITALS: BP 133/76
[2017-06-03] MEDS: metFORMIN 500 MG TABLET PO SCH (09:15)
[2017-06-03] MEDS: ASPIRIN ENTERIC COATED 81 MG TABLET.DR. PO SCH (09:15)
[2017-06-03] MEDS: LOSARTAN 50 MG TABLET. PO SCH (09:16)
[2017-06-03 18:03] VITALS: BP 118/87
[2017-06-03] MEDS: ATORVASTATIN CALCIUM 20 MG TABLET PO SCH (20:50)
[2017-06-04] MEDS: TIMOLOL 0.5% OPHTH SOLUTION 5ML BOTTLE. OU SCH ×2 (04:09→16:00)
[2017-06-04 05:15] VITALS: BP 122/73
[2017-06-04] MEDS: metFORMIN 500 MG TABLET PO SCH (08:17)
[2017-06-04] MEDS: LOSARTAN 50 MG TABLET. PO SCH (08:18)
[2017-06-04] MEDS: ASPIRIN ENTERIC COATED 81 MG TABLET.DR. PO SCH (08:18)
[2017-06-04 16:03] VITALS: BP 152/96
[2017-06-04 19:13] VITALS: BP 114/68
[2017-06-04] MEDS: ATORVASTATIN CALCIUM 20 MG TABLET PO SCH (20:11)
[2017-06-05] MEDS: TIMOLOL 0.5% OPHTH SOLUTION 5ML BOTTLE. OU SCH ×2 (03:59→16:21)
[2017-06-05 05:39] VITALS: BP 114/70
[2017-06-05] MEDS: ASPIRIN ENTERIC COATED 81 MG TABLET.DR. PO SCH (08:12)
[2017-06-05 08:13] VITALS: BP 114/70
[2017-06-05] MEDS: LOSARTAN 50 MG TABLET. PO SCH (08:13)
[2017-06-05] MEDS: metFORMIN 500 MG TABLET PO SCH (08:15)
== END 2017-06-05 16:21 | disposition home health service (06) | DRG 57 ==
LOC: 1 SOUTH 16:15
PROVIDERS: ADMIT Internal Medicine; ATTEND Internal Medicine
DX: I69.354 Hemiplegia and hemiparesis following cerebral infarction affecting left non-dominant side (principal); E11.9 Type 2 diabetes mellitus without complications; E78.5 Hyperlipidemia, unspecified; I10 Essential (primary) hypertension; Z85.46 Personal history of malignant neoplasm of prostate
CPT/HCPCS: 82947; 97110; 97116; 97530; 97535

== ENCOUNTER → 2017-08-08 | Outpatient (CLI) | payer MEDICARE ==
--- NOTE | 2017-08-08 15:23 | RAD ---
CT CHEST ABD PELVIS W/CONTRAST Indication: Restaging prostate cancer Technique: Postcontrast CT imaging was performed of the chest, abdomen, pelvis, multiplanar reconstruction images submitted. One or more of the following individualized dose reduction techniques were utilized for this examination: 1. Automated exposure control 2. Adjustment of the mA and/or kV according to patient size 3. Use of iterative reconstruction technique. Contrast: 75 cc Omnipaque 300 Comparison: June 13, 2016 CHEST: Findings: There is no pericardial or pleural fluid, pneumothorax, lobar infiltrate. There is minimal linear fibrotic change right lower lobe. There is a large thyroid mass/goiter with intrathoracic extent greater on the left, some deviation of the trachea to the right, also some associated foci of calcification. On the left this measures about 5.6 cm AP by 5.3 cm transverse, overall similar. Thoracic aortic caliber is within normal limits without intraluminal flap. There is coronary calcification. There is some emphysema with upper zone predominance. No suspicious pulmonary nodularity is identified. There is bilateral gynecomastia. IMPRESSION: 1. There is no significant lymphadenopathy of the chest or suspicious pulmonary nodularity. 2. There is large thyroid mass/goiter with intrathoracic extent greater on the left, some deviation of the trachea to the right. 3. There is some coronary calcification. 4. There is bilateral gynecomastia. Abdomen and pelvis: FINDINGS: Tiny hypodense lesion of the left lobe of liver 0.3 to 0.4 cm axial image 15 is too small to otherwise accurately characterize, not well-visualized on previous exam. Both kidneys enhance, no hydronephrosis. There is no abnormality of the spleen or somewhat small pancreas. Bowel is not significantly dilated. There is retained stool greatest of the right colon. There is diverticulosis greatest of the sigmoid colon. Prostate gland measures about 4.1 cm transverse by 2.7 cm AP by 3.6 cm cc, associated prominent calcifications. There is multilevel lumbar facet degenerative change. There is more advanced degenerative disc disease at L2-3, sclerosis of endplates at this level likely reactive/degenerative in etiology. There is stable nonspecific sclerosis involving the inferior aspect of L1 near the endplate. There is some distention of stomach. No significantly enlarged nodes are identified of the abdomen or pelvis. There is no adrenal nodularity. There is a small gallstone. IMPRESSION: 1. There is no significant lymphadenopathy of the abdomen or pelvis. Tiny, apparently new hypodense lesion of the liver is too small to otherwise accurately characterize. 2. There is distention of stomach. There is sigmoid diverticulosis. 3. There is lumbar degenerative disc disease greatest at L2-3 and L1-2, some sclerosis of the endplates greatest at L2-3 more likely to be reactive/degenerative in etiology. Stable sclerosis of the inferior aspect of L1 is nonspecific, although also may be reactive. 4. There is cholelithiasis. Electronically signed by: Sal Browne MD (08/08/2017 3:21 PM) [id number]
--- NOTE | 2017-08-08 16:01 | RAD ---
Radionuclide bone scan, 08/08/2017: History: Prostate cancer, elevated PSA, restaging Whole body imaging was performed following IV injection of 25 mCi of technetium 99m MDP. Comparison is made to a study from 06/13/2016. Increased activity in the mid lumbar spine at approximately the L2-3 levels is unchanged. Activity of the radionuclide about the skeleton major joints is otherwise unremarkable. Normal activity is present in both kidneys and the bladder. IMPRESSION: 1. Unchanged abnormal upper lumbar radionuclide uptake likely on a degenerative basis. 2. No new bone scan abnormality is detected.
== END | disposition home or self-care (01) ==
LOC: NM 10:06
PROVIDERS: ATTEND Internal Medicine Hematology & Oncology
DX: C61 Malignant neoplasm of prostate (principal); N62 Hypertrophy of breast; K80.20 Calculus of gallbladder without cholecystitis without obstruction; K57.30 Diverticulosis of large intestine without perforation or abscess without bleeding; M51.36 Other intervertebral disc degeneration, lumbar region; J39.8 Other specified diseases of upper respiratory tract
CPT/HCPCS: 71260; 74177; 78306; 96374; A9503

== ENCOUNTER 2018-05-09 20:24 | Emergency (ER) | payer MEDICARE ==
[~2018-05-09] VITALS: Ht 167.6 cm; Wt 51.0 kg
[~2018-05-09 20:24] MED LIST changes: +LOSA100T14 PO; -LOSA100T6 PO; -METF10002 PO; +METF10007 PO
--- NOTE | 2018-05-09 21:16 | PHYS DOC ---
Adult General Chief Complaint Chief Complaint hip pain HPI HPI 82 years old female presented emergency department with left hip pain after fall he is not able to ambulate. Rated his pain is 4 out of 10 that he has a history of stroke with residual left-sided weakness when he ambulates use a walker.. Review of Systems Review of Systems Constitutional: Denies fever or chills [] Eyes: Denies change in visual acuity, redness, or eye pain [] HENT: Denies nasal congestion or sore throat [] Respiratory: Denies cough or shortness of breath [] Cardiovascular: No additional information not addressed in HPI [] GI: Denies abdominal pain, nausea, vomiting, bloody stools or diarrhea [] : Denies dysuria or hematuria [] Musculoskeletal: Denies back pain or joint pain [] Integument: Denies rash or skin lesions [] Neurologic: Denies headache, focal weakness or sensory changes [] Endocrine: Denies polyuria or polydipsia [] All other systems were reviewed and found to be within normal limits, except as documented in this note. Allergies Allergies Allergies Coded Allergies Type Severity Reaction Last Updated Verified No Known Drug Allergies 01/22/14 No Physical Exam Physical Exam Constitutional: Well developed, well nourished, no acute distress, non-toxic appearance. [] HENT: Normocephalic, atraumatic, bilateral external ears normal, oropharynx moist, no oral exudates, nose normal. [] Eyes: PERRLA, EOMI, conjunctiva normal, no discharge. [] Neck: Normal range of motion, no tenderness, supple, no stridor. [] Cardiovascular:Heart rate regular rhythm, no murmur [] Lungs & Thorax: Bilateral breath sounds clear to auscultation [] Abdomen: Bowel sounds normal, soft, no tenderness, no masses, no pulsatile masses. [] Skin: Warm, dry, no erythema, no rash. [] Back: No tenderness, no CVA tenderness. [] Extremities: + tenderness left groin and hip, no cyanosis, no clubbing, ROM intact, no edema. [] Neurologic: Alert and oriented X 3, normal motor function, normal sensory function, no focal deficits noted. [] Psychologic: Affect normal, judgement normal, mood normal. [] Current Patient Data Vital Signs Vital Signs Date Time Temp Pulse Resp B/P (MAP) Pulse Ox O2 Delivery O2 Flow Rate FiO2 05/09/18 20:33 98.1 109 18 100 Room Air EKG EKG [] Radiology/Procedures Radiology/Procedures [] Course & Med Decision Making Course & Med Decision Making Pertinent Labs and Imaging studies reviewed. (See chart for details) [] Final Impression Final Impression [] Problems: (1) Fracture of hip, left, closed Qualifiers: Qualified Codes: S72.002A - Fracture of unspecified part of neck of left femur, initial encounter for closed fracture Dragon Disclaimer Dragon Disclaimer This electronic medical record was generated, in whole or in part, using a voice recognition dictation system. TRISTAN PRIETO MD May 09, 2018 21:16
[2018-05-09 21:31] LABS: BASO # 0.1 x10^3/uL (0.0-0.2); BASO % 1 % (0-3); EOS # 0.2 x10^3/uL (0.0-0.7); EOS % 3 % (0-3); HEMATOCRIT 37.2 % (39.0-53.0); HEMOGLOBIN 12.4 g/dL (13.0-17.5); LYMPH # 1.7 x10^3/uL (1.0-4.8); LYMPH % 21 % (24-48); MEAN CORPUSCULAR HEMOGLOBIN 30 pg (25-35); MEAN CORPUSCULAR HGB CONC 33 g/dL (31-37); MEAN CORPUSCULAR VOLUME 91 fL (79-100); MONO # 0.4 x10^3/uL (0.0-1.1); MONO % 5 % (0-9); NEUT # 5.4 x10^3uL (1.8-7.7); NEUT % 69 % (31-73); PLATELET COUNT 284 x10^3/uL (140-400); RED BLOOD COUNT 4.11 x10^6/uL (4.30-5.70); RED CELL DISTRIBUTION WIDTH 14.2 % (11.5-14.5); WHITE BLOOD COUNT 7.8 x10^3/uL (4.0-11.0)
[2018-05-09] MEDS ORDERED: MORPHINE SULFATE 4 MG/ML DISP.SYRIN. IV ONE (21:45)
[2018-05-09 22:03] LABS: CALCIUM 8.8 mg/dL (8.5-10.1); CREATININE 1.3 mg/dL (0.7-1.3); GFR 64.1; POTASSIUM 4.4 mmol/L (3.5-5.1)
[2018-05-09 22:40] VITALS: BP 155/89
--- NOTE | 2018-05-10 09:02 | RAD ---
CHEST AP ONLY History: Fall tonight, preop clearance Comparison: May 25, 2017 chest radiograph and chest CT August 08, 2017 Findings: Single view of the chest is submitted. There is again abnormal opacity of the superior paratracheal region bilaterally, left greater than right, corresponding with large thyroid mass/goiter with intrathoracic extent as seen on previous CT. There is electronic device overlying the left hemithorax. There is no pneumothorax, pleural fluid, infiltrate. There is emphysema. There is atherosclerotic calcification near aortic arch. Impression: 1. No acute radiographic abnormality is identified. 2. There is again superior paratracheal masslike opacity as seen on CT corresponding with thyroid mass/goiter. Electronically signed by: Sal Browne MD (05/10/2018 8:58 AM) [id number]
--- NOTE | 2018-05-10 09:04 | RAD ---
HIP LEFT 2V WITH PELVIS History: Fall today, left hip and pelvic pain Comparison: None. Findings: AP view of the pelvis and 3 additional views of the left hip are submitted. There is displaced, somewhat comminuted, posttraumatic, left femoral neck fracture with mild displacement and overriding of the fracture fragments. Left femoral head articulates minimal normally with the acetabulum. There are some calcifications of the more central pelvic region probably associated with prostate gland. Impression: 1. There is somewhat displaced and comminuted left femoral neck fracture. Electronically signed by: Sal Browne MD (05/10/2018 9:00 AM) [id number]
== END 2018-05-09 22:52 | disposition short-term general hospital (02) ==
LOC: ER 20:24
DX: S72.092A Other fracture of head and neck of left femur, initial encounter for closed fracture (principal); Z86.73 Personal history of transient ischemic attack (TIA), and cerebral infarction without residual deficits; W18.30XA Fall on same level, unspecified, initial encounter; Y93.89 Activity, other specified; Y92.89 Other specified places as the place of occurrence of the external cause; Y99.8 Other external cause status
CPT/HCPCS: 36415; 71045; 73502; 80048; 85025; 96374; 99285; J2270

== ENCOUNTER 2018-05-17 21:42 | Inpatient (IN) | payer MEDICARE ==
[~2018-05-17] VITALS: Ht 165.1 cm; Wt 49.2 kg
--- NOTE | 2018-05-17 21:46 | ED.ADGEN ---
Past History Past Medical History: Cancer, Constipation, CVA, Diabetes, High Cholesterol, Hypertension, Stroke Past Surgical History: Hip Replacement Alcohol Use: None Drug Use: None Adult General Chief Complaint Chief Complaint ..." I fell.. "..." I guess I missed the bed...." HPI HPI Patient is a 82 year old male who presents with hx of fall at [facility]. Pt. recently admitted to [facility] after Fx. Lt Hip on 05/09 and repair at [facility]. Pt. found down between his bed and wheel chair at approximately 2100 hrs. Pt. poor historian. Pt. has no specific complaints. Limited information available from [facility]. Sent in for eval. since assumption of fall. Pt. has Pt. has hx of CA, CVA with Lt side deficits, DM II, Elev. Cholesterol, HTN, TIA , Dementia and Gait Disorder. Review of Systems Review of Systems Pt. denies any pain except site of surgery on Lt hip Constitutional: Denies fever or chills [] Eyes: Denies change in visual acuity, redness, or eye pain [] HENT: Denies nasal congestion or sore throat [] Respiratory: Denies cough or shortness of breath [] Cardiovascular: No additional information not addressed in HPI [] GI: Denies abdominal pain, nausea, vomiting, bloody stools or diarrhea [] : Denies dysuria or hematuria [] Musculoskeletal: Denies back pain or joint pain [] Integument: Denies rash or skin lesions [] Neurologic: Denies headache, focal weakness or sensory changes [] Endocrine: Denies polyuria or polydipsia [] All other systems were reviewed and found to be within normal limits, except as documented in this note. Family History Family History Non-contributory Current Medications Current Medications Current Medications Medications (Trade) Dose Ordered Sig/Cesario Start Time Stop Time Status Last Admin Dose Admin Lactated Ringer's 1,000 ml @ 100 mls/hr Q10H 05/17/18 22:00 05/18/18 07:59 05/17/18 22:52 100 MLS/HR Allergies Allergies Allergies Coded Allergies Type Severity Reaction Last Updated Verified No Known Drug Allergies 01/22/14 No Physical Exam Physical Exam Constitutional: no acute distress, non-toxic appearance. [] HENT: Normocephalic, atraumatic, bilateral external ears normal, oropharynx moist, no oral exudates, nose normal. [] Eyes: PERRLA, EOMI, conjunctiva normal, no discharge. [] Neck: Normal range of motion, no tenderness, supple, no stridor. [] Cardiovascular:Heart rate regular rhythm, no murmur [] Lungs & Thorax: Bilateral breath sounds equal at apex on auscultation , [] cardiac implant monitor Abdomen: Bowel sounds normal, soft, no tenderness, no masses, no pulsatile masses. Distended Skin: Warm, dry, no erythema, no rash. [] Back: No tenderness, no CVA tenderness. [] Extremities: No tenderness, no cyanosis, no clubbing, ROM intact, no edema. Lt side weakness- reportedly chronic. Wound vac. Lt. Hip surgery site . Neurologic: Alert and oriented X 1, name, ,Rt sided motor function, No gross sensory changes from base line per family. Psychologic: Affect normal for pt., obvious judgement and mental deficits- normal baseline for pt.] Current Patient Data Vital Signs Vital Signs Date Time Temp Pulse Resp B/P (MAP) Pulse Ox O2 Delivery O2 Flow Rate FiO2 05/17/18 21:54 98.4 131 18 99 Room Air Lab Results Laboratory Tests Test 05/17/18 22:15 White Blood Count 10.8 x10^3/uL (4.0-11.0) Red Blood Count 3.05 x10^6/uL (4.30-5.70) L Hemoglobin 9.6 g/dL (13.0-17.5) L Hematocrit 28.4 % (39.0-53.0) L Mean Corpuscular Volume 93 fL (79-100) Mean Corpuscular Hemoglobin 31 pg (25-35) Mean Corpuscular Hemoglobin Concent 34 g/dL (31-37) Red Cell Distribution Width 13.5 % (11.5-14.5) Platelet Count 464 x10^3/uL (140-400) H Neutrophils (%) (Auto) 69 % (31-73) Lymphocytes (%) (Auto) 18 % (24-48) L Monocytes (%) (Auto) 9 % (0-9) Eosinophils (%) (Auto) 3 % (0-3) Basophils (%) (Auto) 1 % (0-3) Neutrophils # (Auto) 7.5 x10^3uL (1.8-7.7) Lymphocytes # (Auto) 2.0 x10^3/uL (1.0-4.8) Monocytes # (Auto) 0.9 x10^3/uL (0.0-1.1) Eosinophils # (Auto) 0.3 x10^3/uL (0.0-0.7) Basophils # (Auto) 0.1 x10^3/uL (0.0-0.2) Prothrombin Time 9.5 SEC (9.4-11.4) Prothrombin Time INR 1.0 (0.9-1.1) PTT > 150 SEC (23-33) *H D-Dimer (Sherly) 3.63 mg/L (0.00-0.50) H Sodium Level 141 mmol/L (136-145) Potassium Level 4.2 mmol/L (3.5-5.1) Chloride Level 106 mmol/L (98-107) Carbon Dioxide Level 25 mmol/L (21-32) Anion Gap 10 (6-14) Blood Urea Nitrogen 24 mg/dL (8-26) Creatinine 1.2 mg/dL (0.7-1.3) Estimated GFR (Cockcroft-Gault) 70.3 Glucose Level 195 mg/dL (70-99) H Calcium Level 8.9 mg/dL (8.5-10.1) Magnesium Level 1.9 mg/dL (1.8-2.4) Total Bilirubin 0.4 mg/dL (0.2-1.0) Direct Bilirubin 0.1 mg/dL (0.0-0.2) Aspartate Amino Transferase (AST) 20 U/L (15-37) Alanine Aminotransferase (ALT) 11 U/L (16-63) L Alkaline Phosphatase 82 U/L (46-116) Creatine Kinase 192 U/L (39-308) Troponin I Quantitative < 0.017 ng/mL (0-0.055) HZ-Hjc-G-Type Natriuretic Peptide 127 pg/mL (0-449) Total Protein 7.2 g/dL (6.4-8.2) Albumin 2.8 g/dL (3.4-5.0) L Lipase 292 U/L (73-393) EKG EKG My interpretation EKG shows sinus tachycardia heart 127. This was nonspecific contour abnormalities. But no findings acute STEMI of contralateral changes.[] Radiology/Procedures Radiology/Procedures My interpretation CT of head and cervical show no obvious fracture, bleed, shift , mass, or edema. Does have white matter disease changes and old lacunar anatomic infarct. Does have generalized atrophy. Does have degenerative joint changes.. See formal report when available. My interpretation of acute abdomen film shows no acute cardio pulmonary findings. Does have findings of a implant monitor. An old calcified granulomas. Does have findings of no free air under diaphragm but does have increased stool. Pelvic film shows recent left hip replacement and wound VAC. No obvious fracture/ dislocation.[] Course & Med Decision Making Course & Med Decision Making Pertinent Labs and Imaging studies reviewed. (See chart for details) Pt. Admitted to Dr. Barnett for further eval and tx. [] Final Impression Final Impression 1. Fall[] 2. Hx. of Lt. Hip fx- s/p repair 3. Hx. CVA- Lt side deficits 4. Hx. Dementia 5. Anemia 9.6 Hgb 6. Malnutrition Alb. 2.8 7. Hx DM 195 8. Hx. Elev. D-dimer 9. Constipation Dragon Disclaimer Dragon Disclaimer This electronic medical record was generated, in whole or in part, using a voice recognition dictation system. THERESA BANGURA MD May 17, 2018 21:46
[2018-05-17 22:34] LABS: BASO # 0.1 x10^3/uL (0.0-0.2); BASO % 1 % (0-3); EOS # 0.3 x10^3/uL (0.0-0.7); EOS % 3 % (0-3); HEMATOCRIT 28.4 % (39.0-53.0); HEMOGLOBIN 9.6 g/dL (13.0-17.5); LYMPH % 18 % (24-48); MEAN CORPUSCULAR HEMOGLOBIN 31 pg (25-35); MEAN CORPUSCULAR HGB CONC 34 g/dL (31-37); MEAN CORPUSCULAR VOLUME 93 fL (79-100); MONO # 0.9 x10^3/uL (0.0-1.1); MONO % 9 % (0-9); NEUT # 7.5 x10^3uL (1.8-7.7); NEUT % 69 % (31-73); PLATELET COUNT 464 x10^3/uL (140-400); RED BLOOD COUNT 3.05 x10^6/uL (4.30-5.70); RED CELL DISTRIBUTION WIDTH 13.5 % (11.5-14.5); WHITE BLOOD COUNT 10.8 x10^3/uL (4.0-11.0)
[2018-05-17] MEDS: IV RINGERS SOLUTION,LACTATED 1,000 ML IV SCH (22:52)
[2018-05-17 22:55] LABS: ALBUMIN 2.8 g/dL (3.4-5.0); CALCIUM 8.9 mg/dL (8.5-10.1); CREATININE 1.2 mg/dL (0.7-1.3); DIRECT BILIRUBIN 0.1 mg/dL (0.0-0.2); GFR 70.3; MAGNESIUM 1.9 mg/dL (1.8-2.4); POTASSIUM 4.2 mmol/L (3.5-5.1); TOTAL BILIRUBIN 0.4 mg/dL (0.2-1.0); TOTAL PROTEIN 7.2 g/dL (6.4-8.2)
--- NOTE | 2018-05-17 23:01 | RAD ---
EXAM: Head and cervical spine CT without contrast. HISTORY: Fall. TECHNIQUE: Computed tomographic images of the head and cervical spine were obtained without contrast. *One or more of the following individualized dose reduction techniques were utilized for this examination: 1. Automated exposure control. 2. Adjustment of the mA and/or kV according to patient size. 3. Use of iterative reconstruction technique. COMPARISON: 05/25/2017. FINDINGS: Head: There is no intracranial hemorrhage. There is no mass effect or midline shift. There is moderate ventricular enlargement due to cerebral atrophy. There is extensive decreased attenuation throughout the cerebral white matter, likely due to chronic small vessel disease. There are chronic lacunar infarcts within the bilateral basal ganglia and left thalamus. There is evidence of lens surgery. There is right maxillary sinus wall thickening due to the sequela of chronic sinusitis. The mastoid air cells are clear. No suspicious calvarial lesion is seen. Cervical spine: There is mild multilevel listhesis. There is degenerative endplate remodeling with disc space narrowing and osteophytosis primarily at C5-C6, and to a lesser extent, C4-C5. There is multilevel facet arthropathy. There is no suspicious osseous lesion. There is no fracture. At C2-C3, there is a disc bulge. There is no stenosis. At C3-C4, there is a disc bulge and endplate remodeling. There is moderate right and mild left facet arthropathy. There is uncovertebral arthropathy. There is mild bilateral foraminal stenosis. At C4-C5, is a disc bulge and endplate osteophytosis. There is moderate to severe right and mild left facet arthropathy. There is a right uncovertebral therapy. There is moderate right and mild left foraminal stenosis. At C5-C6, there is a disc bulge and endplate osteophytosis. There is mild bilateral facet arthropathy. There is uncovertebral arthropathy. There is mild left foraminal stenosis. There is severely enlarged heterogeneous thyroid goiter extending into the thoracic inlet. This deviates the trachea. The lung apices are unremarkable. IMPRESSION: 1. No acute intracranial finding or evidence of acute cervical spine trauma. 2. Cerebral atrophy and areas of hypodensity within the cerebral white matter due to chronic small vessel disease. 3. Chronic lacunar infarcts within the basal ganglia and left thalamus. 4. Multilevel degenerative change throughout the cervical spine, described above. 5. Thyroid goiter with intrathoracic extension. This can be better assessed with a thyroid sonogram. Electronically signed by: Samantha Childs MD (05/17/2018 10:57 PM) [facility]
[2018-05-17] MEDS ORDERED: ONDANSETRON PF 4 MG/2 ML VIAL. IV PRN (23:30)
[2018-05-17] MEDS ORDERED: IV RINGERS SOLUTION,LACTATED 1,000 ML IV ONE (23:45)
[2018-05-17] MEDS ORDERED: MAGNESIUM HYDROXIDE 2,400 MG/30 ML ORAL.SUSP. PO ONE (23:45)
--- NOTE | 2018-05-17 23:55 | RAD ---
AP pelvis 05/17/2018. Reason for exam: Patient fell. Weakness. Recent hip fracture repair. Comparison is made with the study of 05/09/2018. Since the prior exam, there is been left hip replacement surgery. No acute fracture or dislocation is seen. IMPRESSION: No acute findings. Acute abdomen series 05/17/2018. Reason for exam: Pain and weakness. No free air is seen. Gas is present mostly in the colon. There is no evidence of obstruction. There is moderate colonic stool. A single view of the chest shows no infiltrate or effusion. Heart size is normal. There is upper mediastinal widening, similar to a prior exam of 07/04/2005. This may indicate thyroid goiter. IMPRESSION: No evidence of obstruction. Moderate colonic stool. Electronically signed by: Manuel Hancock Jr., MD (05/17/2018 11:51 PM) [facility]
[2018-05-18 02:23] VITALS: BP 152/87
[2018-05-18] MEDS: IV RINGERS SOLUTION,LACTATED 1,000 ML IV SCH (06:19)
[2018-05-18 06:28] LABS: BASO # 0.1 x10^3/uL (0.0-0.2); BASO % 1 % (0-3); EOS # 0.3 x10^3/uL (0.0-0.7); EOS % 4 % (0-3); HEMATOCRIT 24.9 % (39.0-53.0); HEMOGLOBIN 8.4 g/dL (13.0-17.5); LYMPH # 2.7 x10^3/uL (1.0-4.8); LYMPH % 29 % (24-48); MEAN CORPUSCULAR HEMOGLOBIN 31 pg (25-35); MEAN CORPUSCULAR HGB CONC 34 g/dL (31-37); MEAN CORPUSCULAR VOLUME 92 fL (79-100); MONO # 0.8 x10^3/uL (0.0-1.1); MONO % 9 % (0-9); NEUT # 5.6 x10^3uL (1.8-7.7); NEUT % 59 % (31-73); PLATELET COUNT 444 x10^3/uL (140-400); RED BLOOD COUNT 2.72 x10^6/uL (4.30-5.70); RED CELL DISTRIBUTION WIDTH 13.5 % (11.5-14.5); WHITE BLOOD COUNT 9.5 x10^3/uL (4.0-11.0)
[2018-05-18 06:30] VITALS: BP 157/87
[2018-05-18 06:31] LABS: CALCIUM 8.3 mg/dL (8.5-10.1); GFR 86.8
[2018-05-18 10:39] VITALS: BP 131/72
--- NOTE | 2018-05-18 13:59 | RAD ---
Examination: Lower Extremity Venous Doppler Ultrasound History: Weakness, swelling status post hip surgery Comparison: None Procedure: Galvin scale, color flow 2D and spectal waveform analysis images are obtained with and without compression in the area of the common femoral vein, superficial femoral vein - femoral vein junction, main femoral vein (superficial femoral vein) and popliteal vein. Veins of the proximal calf are also imaged. Findings: There is normal duplex flow, color flow and compressibility of all visualized vein segments. No evidence of deep venous thrombus is present. Impression: No evidence of DVT in the visualized bilateral lower extremity venous system. Electronically signed by: Gino Dillon MD (05/18/2018 1:54 PM) [place] [id number]
[2018-05-18] MEDS ORDERED: HYDROcodone/APAP 7.5/325MG 1 TAB TABLET ONE (14:42)
[2018-05-18] MEDS ORDERED: HYDROcodone/APAP 7.5/325MG 1 TAB TABLET PO PRN (14:45)
[2018-05-18] MEDS: ASPIRIN 81 MG TAB.CHEW PO SCH (14:48)
[2018-05-18] MEDS: ENOXAPARIN ** NOTE DOSE ** SYRINGE SQ SCH ×2 (14:48→21:31)
[2018-05-18 14:51] VITALS: BP 146/74
[2018-05-18] MEDS ORDERED: IOHEXOL 300 MG/ML 75 ML VIAL. IV ONE (15:00)
[2018-05-18] MEDS ORDERED: IOHEXOL 350 MG/ML 100 ML VIAL. IV ONE (15:15)
--- NOTE | 2018-05-18 16:13 | RAD ---
CT ANGIOGRAPHY CHEST Indication: ELEVATED D DIMER, RECENT HIP FRACTURE AND FALL, HX PROSTATE CA
OMNI 350 75CC . Comparison: Prior CT chest August 08, 2017, but no previous CTA of the chest. Technique: After intravenous contrast administration, CT imaging was performed of the chest. MIP reconstructions were obtained. Exposure: One or more of the following individualized dose reduction techniques were utilized for this examination: 1. Automated exposure control 2. Adjustment of the mA and/or kV according to patient size 3. Use of iterative reconstruction technique. FINDINGS: Pulmonary arteries: No evidence of pulmonary embolism. Thoracic aorta: Ascending aorta measures 3.3 cm transverse diameter. No evidence of aortic dissection or descending aortic aneurysm. Mild calcification. Thyroid gland: Massively enlarged and heterogeneous, overall the thyroid measures slightly larger on today's study, 8.5 cm wide as compared with 7.5 cm wide on the previous exam. Intrathoracic extension of the thyroid is again seen, resulting in deviation of the trachea to the right. Lymph nodes: No significant enlargement Heart: Coronary artery calcifications. Esophagus: Not distended Pleural spaces: No significant effusion Lungs: No dominant airspace consolidation or large mass. Trachea and central airways: Patent Bones: Mild degenerative spondylosis. Upper abdomen: Slices through the upper abdomen are limited due to the technique. No obvious acute findings. External Soft Tissue: Gynecomastia is again noted. IMPRESSION: 1. No evidence of pulmonary embolism. 2. Large thyroid mass or goiter is again identified, measures slightly larger than previous study. Electronically signed by: Srinath Ibarra MD (05/18/2018 3:44 PM) [facility]
[2018-05-18 16:40] LABS: BASO # 0.1 x10^3/uL (0.0-0.2); BASO % 1 % (0-3); EOS # 0.3 x10^3/uL (0.0-0.7); EOS % 4 % (0-3); HEMOGLOBIN 8.3 g/dL (13.0-17.5); LYMPH % 22 % (24-48); MEAN CORPUSCULAR HEMOGLOBIN 31 pg (25-35); MEAN CORPUSCULAR HGB CONC 33 g/dL (31-37); MEAN CORPUSCULAR VOLUME 93 fL (79-100); MONO # 0.8 x10^3/uL (0.0-1.1); MONO % 9 % (0-9); NEUT # 5.8 x10^3uL (1.8-7.7); NEUT % 65 % (31-73); PLATELET COUNT 447 x10^3/uL (140-400); RED BLOOD COUNT 2.69 x10^6/uL (4.30-5.70); RED CELL DISTRIBUTION WIDTH 13.6 % (11.5-14.5); WHITE BLOOD COUNT 8.9 x10^3/uL (4.0-11.0)
--- NOTE | 2018-05-18 16:44 | HP ---
ADMIT DATE: 05/17/2018 HISTORY OF PRESENT ILLNESS: The patient is an 82-year-old -Sy[place] male patient, who was a resident at [facility], who came to the Emergency Room as he was found down between his bed and wheelchair at approximately 2100. He is a poor historian. He has no specific complaint. He was sent for evaluation since the fall was unwitnessed. He was extensively investigated. His lab work was generally unremarkable except for the fact that his prothrombin time was 9.5 and INR 1; however, aPTT was extremely prolonged more than 150. His D-dimer was extremely high at 3.63. He was admitted to continue with IV fluid, was put on Lovenox 50 mg twice a day. He has had Doppler ultrasound of both lower extremities, which were negative and showed normal duplex Doppler flow and compressibility of all the visualized vein segments. No evidence of deep venous thrombosis are present. CT scan of the head and cervical spine showed no acute intracranial findings, no evidence of acute cervical spine trauma, cerebral atrophy and areas of hypodensity within the cerebral white matter due to chronic small vessel disease. He has chronic lacunar infarcts within the basal ganglia and left thalamus. He has multilevel degenerative changes throughout cervical spine, described above and the thyroid goiter with intrathoracic extension, this can be better assessed with a thyroid sonogram. 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 He has residual left-sided weakness and probably left side foot drop. PAST SURGICAL HISTORY: Significant for bilateral cataract extraction and has more recently a left hip fracture, status post open reduction and internal fixation. ALLERGIES: He has no known drug allergies. FAMILY HISTORY: He has 2 brothers, an older one of prostate cancer and one of sepsis. One sister is younger and healthy. SOCIAL HISTORY: He is , lives with his , has 6 daughters and 4 sons. He is an ex-smoker, quit about 25 years ago. He used to smoke a pack a day and smoked for a long time. 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 REVIEW OF SYSTEMS: As per history of present illness. MEDICATIONS: He is currently on following medications: He is on atorvastatin, calcium 20 mg at bedtime, losartan, potassium 100 mg. He is on aspirin 81 mg once a day, timolol maleate 1 drop to both eyes twice a day and metformin 1000 mg daily with breakfast. PHYSICAL EXAMINATION: GENERAL: When I arrived to the Emergency Room, the patient was pale, cachectic, but no jaundice, cyanosis, or thyromegaly. No jugular venous distension. No lower limb edema. VITAL SIGNS: His heart rate was 124, blood pressure was 138/81, temperature was 99.6, respiratory rate was 22 and oxygen saturation was 99%. HEAD, EYES, EARS, NOSE AND THROAT: Normocephalic, atraumatic. NECK: Supple. HEART: Showed normal first and second heart sounds with no gallop, rub or murmur. CHEST: Clear to auscultation. No crepitation or rhonchi. ABDOMEN: Scaphoid, soft, nontender. NEUROLOGIC: He was awake, alert, responding appropriately. All his cranial nerves are intact. He has residual left-sided weakness. He has recent hip fracture. Surgical wound covered with dressing that was with some bleeding. LABORATORY DATA: His lab work on arrival showed a white cell count of 10,800, hemoglobin 9.6, hematocrit 28.4, MCV 93, and platelet count of 464,000. His chemistry showed a serum sodium 141, potassium 4.2, chloride 106, bicarbonate 25, anion gap of 10, BUN 24, creatinine 1.2, estimated GFR was 70 mL per minute. His glucose was 195, calcium was 8.9, magnesium was 1.9. His total bilirubin, AST, ALT, alkaline phosphatase were normal. Total protein was 7.2, albumin was 2.8. Lipase was 292. His prothrombin time was 9.5, INR 1, aPTT was more than 150 and D-dimer was high at 3.63. He has had a pelvis x-ray, which basically showed no evidence of obstruction. Moderate colonic stool. DIAGNOSTIC DATA: 1. Acute abdomen series showed no evidence of obstruction, moderate colonic stool. 2. CT scan of the head and cervical spine showed basically that no acute intracranial finding or evidence of acute cervical spine trauma, cerebral atrophy with areas of hypodensity within the cerebral white matter due to chronic small vessel disease. 3. Chronic lacunar infarcts within the basal ganglia and left thalamus. 4. Multilevel degenerative changes throughout the cervical spine, described above; thyroid goiter with intrathoracic extension. This can be better assessed with a thyroid sonogram. ASSESSMENT AND PLAN: The patient was continued on IV fluid, continue with pain medication. We will obviously arrange for him to have a CT angio of the chest once his kidney function improves to rule out the possibility of pulmonary emboli that might be contributing to his fall. THUY FLORES MD DR: BONG/wolfgang JOB#: [id number] / [id number]
[2018-05-18 16:53] LABS: ALBUMIN 2.3 g/dL (3.4-5.0); ALBUMIN/GLOBULIN RATIO 0.6 (1.0-1.7); CALCIUM 8.1 mg/dL (8.5-10.1); CREATININE 1.1 mg/dL (0.7-1.3); GFR 77.7; TOTAL BILIRUBIN 0.3 mg/dL (0.2-1.0)
--- NOTE | 2018-05-18 19:33 | EKG ---
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
[2018-05-18 19:51] VITALS: BP 148/79
[2018-05-18 22:50] VITALS: BP 164/89
--- NOTE | 2018-05-19 03:40 | PN ---
DATE: 05/18/2018 SUBJECTIVE: The patient is resting, slightly propped up in bed, in no apparent respiratory distress, continued to complain of pain in his left hip, but denied any other complaint. Nursing staff did not voice any concern. PHYSICAL EXAMINATION: GENERAL: When I examined him, he looked pale, cachectic, but no jaundice, cyanosis, or thyromegaly. No jugular venous distention. No lower limb edema. VITAL SIGNS: His heart rate was 105, blood pressure 146/74, temperature was 98.8, respiratory rate 20, and oxygen saturation was 99% on room air. HEAD, EYES, EARS, NOSE AND THROAT: Normocephalic, atraumatic. NECK: Supple. HEART: Showed normal first and second sounds. No gallop, rub or murmur. CHEST: Clear to auscultation. No crepitation or rhonchi. ABDOMEN: Distended, soft, nontender. No guarding or rigidity. No organomegaly. All hernial orifices intact. Bowel sounds normal. NEUROLOGIC: He is awake, alert, somewhat confused; however, all cranial nerves are intact. He has residual left-sided weakness. EXTREMITIES: He has a left hip fracture, status post open reduction and internal fixation. His intake over the last 24 hours was 500, output is incompletely recorded. LABORATORY DATA: Showed white cell count 9500, hemoglobin 8.4, hematocrit 24.9, MCV 92, and platelet count 444,000. His chemistry showed a serum sodium of 142, potassium 4, chloride 108, bicarbonate 27, anion gap of 7, BUN 16, creatinine 1, estimated GFR was 87 mL per minute. Glucose was 111, calcium was 8.3. His prothrombin time was 9.5, INR 1, repeat APTT was only 23. D-dimer is high at 3.63. PLAN: My plan is to arrange for him to have a CT angio of the chest. We will probably continue with IV fluid and wants to make sure that there is no contrast-induced nephropathy. If he remains stable, we will discharge him back to [place] tomorrow. I will also consult Physical and Occupational therapy. THUY FLORES MD DR: BONG/wolfgang JOB#: [id number] / [id number]
[2018-05-19 06:20] VITALS: BP 151/71
[2018-05-19] MEDS: ASPIRIN 81 MG TAB.CHEW PO SCH (09:18)
[2018-05-19] MEDS: ENOXAPARIN ** NOTE DOSE ** SYRINGE SQ SCH (09:18)
[2018-05-19] MEDS ORDERED: ENOXAPARIN 40 MG/0.4 ML SYRINGE. SQ SCH (10:45)
[2018-05-19 11:21] VITALS: BP 118/67
--- NOTE | 2018-05-19 14:23 | DS ---
DATE OF DISCHARGE: 05/19/2018 HOSPITAL COURSE: The patient is an 82-year-old -[place] male patient who is a resident at [facility] who was brought to the Emergency Room. He was found down between his bed and wheelchair at approximately 2100 on the day of admission. He is a poor historian. He has no specific complaint. He was sent for evaluation since the fall was unwitnessed. He was extensively investigated. His lab work was unremarkable except for the fact that his prothrombin time was normal as well as the INR; however, aPTT was extremely prolonged to more than 150 milliseconds. His D-dimer was extremely high at 3.63. He was admitted, continued IV fluid, and was put on Lovenox 50 mg twice a day. Has had Doppler ultrasound of both lower extremities, which were negative, and showed normal Doppler flow and compressibility of all visualized vein segments with no evidence of deep vein thrombosis. CT scan of the head and cervical spine showed no evidence of any acute intracranial finding. No evidence of acute cervical spine trauma. He does have cerebral atrophy and areas of hypodensity within the cerebral white matter due to chronic small vessel disease. He has chronic lacunar infarcts within the basal ganglia and left thalamus. He had possibility of syncopal episode. He has also had a CT angio of the chest, which basically showed no evidence of pulmonary embolism; however, he has large thyroid mass or goiter is again identified. It measures slightly larger than previous study; however, the patient remained hemodynamically stable and afebrile. He was seen by the physical therapy and has been able to ambulate without difficulty. PHYSICAL EXAMINATION: GENERAL: When I examined him this afternoon, he was sitting propped up in bed, eating his lunch, without any difficulty. On questioning him, he denied any complaint. On examining him, he was pale, somewhat cachectic, but no jaundice, cyanosis or thyromegaly. No jugular venous distention. No limb edema. VITAL SIGNS: His heart rate was 93, blood pressure was 118/67, temperature was 98.3, respiratory rate 20, and oxygen saturation was 99%. HEAD, EYES, EARS, NOSE AND THROAT: Showed normocephalic, atraumatic. NECK: Supple. HEART: Showed normal first and second heart sounds. No gallop, rub, or murmur. CHEST: Clear to auscultation. No crepitation or rhonchi. ABDOMEN: Distended, soft, nontender. No guarding or rigidity. No organomegaly. All hernial orifices intact. NEUROLOGIC: He is awake, alert, responding appropriately. All cranial nerves intact. He has residual left-sided hemiparesis. He is status post fall with left intertrochanteric fracture, status post open reduction and internal fixation. His intake over the last 24 hours was incompletely recorded. LABORATORY DATA: His lab work showed his serum sodium was 140, potassium 4, chloride 106, bicarbonate was 30, anion gap of 4, BUN 16, creatinine 1.1, estimated GFR was 77 mL per minute. His glucose was 166, calcium was 8.1. Total bilirubin, AST, ALT, alkaline phosphatase were normal. Total protein 6, albumin 2.3. His white cell count was 8900, hemoglobin 8.3, hematocrit 25, MCV 93, and platelet count 447. DISCHARGE MEDICATIONS: He was discharged back to [place] to continue on his medications that include his atorvastatin calcium 20 mg once a day, losartan potassium 100 mg once a day, aspirin 81 mg once a day, timolol maleate 1 drop to both eyes twice a day, metformin 1000 mg twice a day. He should also be on Lovenox 40 mg subcutaneously once a day. FINAL DISCHARGE DIAGNOSES: 1. Unwitnessed fall with no evidence of any injury. 2. Right middle cerebral artery territory infarct with left-sided hemiparesis, fall with left intertrochanteric fracture, status post open reduction and internal fixation. He has hypertension, hyperlipidemia, prostate cancer, and left-sided footdrop. THUY FLORES MD DR: BONG/wolfgang JOB#: [id number] / [id number]
== END 2018-05-19 14:05 | DRG 947 ==
LOC: ER 21:42 → ICU 23:00 → UNDOADMIN 23:00 → 1 SOUTH 05-18 01:47
PROVIDERS: ADMIT Internal Medicine; ATTEND Internal Medicine
DX: R79.1 Abnormal coagulation profile (principal); E43 Unspecified severe protein-calorie malnutrition; I69.354 Hemiplegia and hemiparesis following cerebral infarction affecting left non-dominant side; R64 Cachexia; Z68.1 Body mass index [BMI] 19.9 or less, adult; E04.9 Nontoxic goiter, unspecified; E11.51 Type 2 diabetes mellitus with diabetic peripheral angiopathy without gangrene; W18.39XA Other fall on same level, initial encounter; E78.00 Pure hypercholesterolemia, unspecified; E78.5 Hyperlipidemia, unspecified; F03.90 Unspecified dementia, unspecified severity, without behavioral disturbance, psychotic disturbance, mood disturbance, and anxiety; I10 Essential (primary) hypertension; M21.379 Foot drop, unspecified foot; Z96.649 Presence of unspecified artificial hip joint; Z80.42 Family history of malignant neoplasm of prostate; Z85.46 Personal history of malignant neoplasm of prostate; Z87.891 Personal history of nicotine dependence; Z98.41 Cataract extraction status, right eye; Z98.42 Cataract extraction status, left eye; Y93.89 Activity, other specified; Y92.89 Other specified places as the place of occurrence of the external cause; Y99.8 Other external cause status
CPT/HCPCS: 36415; 70450; 71275; 72125; 72170; 74022; 80048; 80053; 80076; 82550; 82947; 83690; 83735; 83880; 84443; 84484; 85025; 85379; 85610; 85730; 87641; 93005; 93970; G0238; J1650; J7120; Q9967; 99285-25

== ENCOUNTER 2018-06-21 21:17 | Emergency (ER) | payer MEDICARE ==
[~2018-06-21] VITALS: Ht 152.4 cm; Wt 50.8 kg
[2018-06-21] MEDS ORDERED: IV NORMAL SALINE 500ML 500 ML IV SCH (21:30)
--- NOTE | 2018-06-21 21:47 | EKG ---
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
--- NOTE | 2018-06-21 21:49 | PHYS DOC ---
Past History Past Medical History: Cancer, Constipation, CVA, Diabetes, High Cholesterol, Hypertension, Stroke Past Surgical History: Hip Replacement Alcohol Use: None Drug Use: None Adult General Chief Complaint Chief Complaint: SYNCOPE HPI HPI Patient is an 83-year-old male who presents after reportedly having a total of 4 syncopal episodes at home. EMS reports that 2 of the episodes of syncope were witnessed by patient's and the other 2, patient reports. Patient denies any chest pain or shortness of breath. He does admit to some generalized weakness. Patient does have history of CVA and has left-sided defect. He also has some expressive aphasia. EMS reports that one of the episodes of syncope that was witnessed was while patient was on his way to go to the bathroom. Patient also reported an additional syncopal episode while he was sitting on toilet. Review of Systems Review of Systems Constitutional: Denies fever or chills [] Respiratory: Denies cough or shortness of breath [] Cardiovascular: No additional information not addressed in HPI [] GI: Denies abdominal pain, nausea, vomiting or diarrhea [] Neurologic: Denies headache. Positive syncope. [] All other systems were reviewed and found to be within normal limits, except as documented in this note. Current Medications Current Medications Current Medications Medications (Trade) Dose Ordered Sig/Cesario Start Time Stop Time Status Last Admin Dose Admin Sodium Chloride 500 ml @ 500 mls/hr Q1H 06/21/18 21:30 Allergies Allergies Allergies Coded Allergies Type Severity Reaction Last Updated Verified No Known Drug Allergies 01/22/14 No Physical Exam Physical Exam Constitutional: Well developed, well nourished, no acute distress, non-toxic appearance. [] HENT: Normocephalic, atraumatic, bilateral external ears normal, oropharynx moist, no oral exudates, nose normal. [] Eyes: PERRLA, EOMI, conjunctiva normal, no discharge. [] Neck: Normal range of motion, no tenderness, supple, no stridor. [] Cardiovascular: Tachycardic rate with regular rhythm [] Lungs & Thorax: Bilateral breath sounds clear to auscultation [] Abdomen: Bowel sounds normal, soft, no tenderness. [] Skin: Warm, dry, no erythema, no rash. [] Extremities: No tenderness, no cyanosis, no clubbing, ROM intact. [] Neurologic: Awake and alert. [] EKG EKG EKG demonstrates sinus tachycardia with rate of 136. There is right bundle- branch block present.[] Radiology/Procedures Radiology/Procedures [] Impressions: PROCEDURE: PORTABLE CHEST 1V CLINICAL INDICATION: Chest pain, syncope COMPARISON: None FINDINGS: No pneumothorax identified. Cardiac and mediastinal contours unremarkable. No pulmonary consolidation or acute airspace disease. No acute osseous abnormalities identified. Soft tissue fullness in the superior mediastinum compatible with wider with mediastinal extension. IMPRESSION: No pulmonary consolidation or acute airspace disease. Additional finding on chest x-ray is left-sided eighth rib fracture with minimal displacement Course & Med Decision Making Course & Med Decision Making Pertinent Labs and Imaging studies reviewed. (See chart for details) [] Dragon Disclaimer Dragon Disclaimer This electronic medical record was generated, in whole or in part, using a voice recognition dictation system. Departure Departure: Impression: Primary Impression: Syncope Additional Impressions: Seizure-like activity Tachycardia Rib fracture Elevated troponin Disposition: [facility] Admitting Physician: Agustin Barnett Referrals: ROXANNE CALVILLO MD (PCP) Problem Qualifiers Primary Impression: Syncope Syncope type: unspecified Qualified Codes: R55 - Syncope and collapse Additional Impressions: Rib fracture Encounter type: initial encounter Rib fracture type: single rib Fracture type: closed Laterality: left Qualified Codes: S22.32XA - Fracture of one rib, left side, initial encounter for closed fracture CELSA QUEVEDO Jr., DO Jun 21, 2018 21:49
[2018-06-21 22:37] LABS: BASO # 0.1 x10^3/uL (0.0-0.2); BASO % 1 % (0-3); EOS # 0.2 x10^3/uL (0.0-0.7); EOS % 3 % (0-3); HEMATOCRIT 37.6 % (39.0-53.0); HEMOGLOBIN 12.2 g/dL (13.0-17.5); LYMPH # 2.2 x10^3/uL (1.0-4.8); LYMPH % 25 % (24-48); MEAN CORPUSCULAR HEMOGLOBIN 29 pg (25-35); MEAN CORPUSCULAR HGB CONC 33 g/dL (31-37); MEAN CORPUSCULAR VOLUME 90 fL (79-100); MONO # 0.5 x10^3/uL (0.0-1.1); MONO % 6 % (0-9); NEUT % 66 % (31-73); PLATELET COUNT 278 x10^3/uL (140-400); RED BLOOD COUNT 4.18 x10^6/uL (4.30-5.70); RED CELL DISTRIBUTION WIDTH 13.8 % (11.5-14.5); WHITE BLOOD COUNT 9.1 x10^3/uL (4.0-11.0)
[2018-06-21 22:50] LABS: ALBUMIN 2.9 g/dL (3.4-5.0); ALBUMIN/GLOBULIN RATIO 0.6 (1.0-1.7); CALCIUM 8.8 mg/dL (8.5-10.1); CREATININE 1.2 mg/dL (0.7-1.3); GFR 70.1; MAGNESIUM 1.8 mg/dL (1.8-2.4); TOTAL BILIRUBIN 0.3 mg/dL (0.2-1.0); TOTAL PROTEIN 7.5 g/dL (6.4-8.2)
[2018-06-21] MEDS ORDERED: ONDANSETRON PF 4 MG/2 ML VIAL. IV ONE (23:00)
[2018-06-21] MEDS ORDERED: POTASSIUM CHLORIDE 20 MEQ TABLET.ER. PO ONE (23:30)
--- NOTE | 2018-06-21 23:34 | RAD ---
CT head without contrast PQRS statement: CT scans at this facility use dose reduction including either automated exposure control, iterative reconstructions, and /or weight based radiation dosing via mA and kV modification when appropriate to reduce radiation dose to as low as reasonably achievable. HISTORY: Seizure TECHNIQUE: [address] imaging skull base to vertex. COMPARISON: CT head May 17, 2018. FINDINGS: Ventriculomegaly is stable may be due to generalized brain atrophy which is present, versus normal pressure hydrocephalus. Chronic bilateral basal ganglia ischemic lacunar infarcts are stable. Extensive cerebral white matter hypoattenuation is stable likely represents advanced chronic microvascular ischemic demyelination. No new infarct evident. No intracranial hemorrhage, mass or obstructive hydrocephalus. Imaged orbits, mastoids, paranasal sinuses and bones are unremarkable. Right maxillary sinus wall hypertrophy indicating the sequela of chronic sinusitis, stable. IMPRESSION: No acute intracranial CT abnormality. Stable exam. Electronically signed by: Donovan Carreon MD (06/21/2018 11:30 PM) [facility]
[2018-06-22] MEDS ORDERED: METOPROLOL TARTRATE 5 MG/5 ML VIAL. IV ONE ×2 (00:15→00:30)
[2018-06-22 00:34] VITALS: BP 125/94
== END 2018-06-22 00:45 | disposition short-term general hospital (02) ==
LOC: ER 21:17
DX: S22.32XA Fracture of one rib, left side, initial encounter for closed fracture (principal); R79.89 Other specified abnormal findings of blood chemistry; R55 Syncope and collapse; E11.9 Type 2 diabetes mellitus without complications; E78.00 Pure hypercholesterolemia, unspecified; I10 Essential (primary) hypertension; Z86.73 Personal history of transient ischemic attack (TIA), and cerebral infarction without residual deficits; X58.XXXA Exposure to other specified factors, initial encounter; Y93.89 Activity, other specified; Y92.89 Other specified places as the place of occurrence of the external cause; Y99.8 Other external cause status
CPT/HCPCS: 36415; 70450; 71045; 80053; 83735; 84484; 85025; 85379; 93005; 96361; 96374; 96375; 99285; J2405; J3010; J3490; J7040; 99284-25

== ENCOUNTER 2018-07-24 10:29 | Emergency (ER) | payer MEDICARE ==
[2018-07-24 10:35] VITALS: BP 201/121
--- NOTE | 2018-07-24 10:44 | PHYS DOC ---
Past History Past Medical History: Cancer, Constipation, CVA, Diabetes, High Cholesterol, Hypertension, Stroke Past Surgical History: Hip Replacement Alcohol Use: None Drug Use: None Adult General Chief Complaint Chief Complaint: chest pain [facility] HPI 83-year-old male presents via EMS with chest pain. The patient was reported to have chest pain at his care facility. When I asked the patient to be has any pain, he says no. When I ask him if he had pain earlier, he says no. He denies shortness of breath or diaphoresis. He has no complaints at this time. He denies fever or chills. Review of Systems Review of Systems Constitutional: Denies fever or chills [] Eyes: Denies change in visual acuity, redness, or eye pain [] HENT: Denies nasal congestion or sore throat [] Respiratory: Denies cough or shortness of breath [] Cardiovascular: No additional information not addressed in HPI [] GI: Denies abdominal pain, nausea, vomiting, bloody stools or diarrhea [] : Denies dysuria or hematuria [] Musculoskeletal: Denies back pain or joint pain [] Integument: Denies rash or skin lesions [] Neurologic: Denies headache, focal weakness or sensory changes [] Endocrine: Denies polyuria or polydipsia [] All other systems were reviewed and found to be within normal limits, except as documented in this note. Allergies Allergies Allergies Coded Allergies Type Severity Reaction Last Updated Verified No Known Drug Allergies 01/22/14 No Physical Exam Physical Exam Constitutional: Well developed, well nourished, thin, no acute distress, non- toxic appearance. [] HENT: Normocephalic, atraumatic, bilateral external ears normal, oropharynx moist, no oral exudates, nose normal. [] Eyes: PERRLA, EOMI, conjunctiva normal, no discharge. [] Neck: Normal range of motion, no tenderness, supple, no stridor. [] Cardiovascular:Heart rate regular rhythm, no murmur [] Lungs & Thorax: Bilateral breath sounds clear to auscultation [] Abdomen: Bowel sounds normal, soft, no tenderness, no masses, no pulsatile masses. [] Skin: Warm, dry, no erythema, no rash. [] Back: No tenderness, no CVA tenderness. [] Extremities: No tenderness, no cyanosis, no clubbing, ROM intact, no edema. [] Neurologic: Alert and oriented X 3, normal motor function, normal sensory function, no focal deficits noted. [] Psychologic: Affect normal, judgement normal, mood normal. [] EKG EKG Sinus rhythm, rate 79, normal axis, no ST elevations or depressions.[] Radiology/Procedures Radiology/Procedures [] Impressions: EXAM: AP View of the chest DATE: 07/24/2018 9:44 AM INDICATION: SHORT OF BREATH COMPARISON: 06/21/2018, CT 05/18/2018 FINDINGS: Cardiac device obscures a portion of the left chest/heart, stable. The heart is not enlarged. Mediastinal and hilar contours are normal. Calcified granulomas are seen in the hilum. No focal parenchymal airspace opacity. No pleural effusion or pneumothorax. Progressively healing left lateral rib fractures, left 8, 9 and 10 laterally. IMPRESSION: 1. No evidence for acute cardiopulmonary process 2. Progressively healing left lateral rib fractures are now seen with subtle periosteal reaction and callus formation Electronically signed by: David Hirsch MD (07/24/2018 10:56 AM) [facility] DICTATED AND SIGNED BY: DAVID HIRSCH MD DATE: 07/24/18 1052 CC: KAUSHIK MARKS DO; ROXANNE CALVILLO MD Course & Med Decision Making Course & Med Decision Making Pertinent Labs and Imaging studies reviewed. (See chart for details) The patient's chest x-ray is negative for acute cardiopulmonary finding. He has some left lateral fractures that are healing. Patient's labs are significant for an elevated creatinine 1.7. Review of his chart shows that his normal creatinine is 1.1-1.3. He also has a pro BNP of over 400. He appears to be a bit clinically dehydrated. We'll give him 1 L of normal saline. His troponin is below the upper limit for normal. I do not believe the patient needs to stay in the hospital. His chest discomfort has been going on for 2 days and does not appear to be cardiac in nature. The family is in agreement with the patient returning to his facility. He is stable for discharge at this time. [] Dragon Disclaimer Dragon Disclaimer This electronic medical record was generated, in whole or in part, using a voice recognition dictation system. Departure Departure: Impression: Primary Impression: Chest pain Additional Impressions: Elevated serum creatinine Dementia Disposition: 01 HOME, SELF-CARE Condition: STABLE Referrals: ROXANNE CALVILLO MD (PCP) Patient Instructions: Chest Wall Pain, [id number] Problem Qualifiers Primary Impression: Chest pain Chest pain type: other chest pain Qualified Codes: R07.89 - Other chest pain Additional Impressions: Dementia Dementia type: unspecified type Dementia behavioral disturbance: without behavioral disturbance Qualified Codes: F03.90 - Unspecified dementia without behavioral disturbance KAUSHIK MARKS DO Jul 24, 2018 10:44
[2018-07-24 10:57] LABS: BASO # 0.1 x10^3/uL (0.0-0.2); BASO % 1 % (0-3); EOS # 0.2 x10^3/uL (0.0-0.7); EOS % 3 % (0-3); HEMATOCRIT 39.4 % (39.0-53.0); LYMPH # 1.9 x10^3/uL (1.0-4.8); LYMPH % 28 % (24-48); MEAN CORPUSCULAR HEMOGLOBIN 28 pg (25-35); MEAN CORPUSCULAR HGB CONC 33 g/dL (31-37); MEAN CORPUSCULAR VOLUME 84 fL (79-100); MONO # 0.4 x10^3/uL (0.0-1.1); MONO % 6 % (0-9); NEUT # 4.2 x10^3uL (1.8-7.7); NEUT % 62 % (31-73); PLATELET COUNT 321 x10^3/uL (140-400); WHITE BLOOD COUNT 6.8 x10^3/uL (4.0-11.0)
--- NOTE | 2018-07-24 10:59 | RAD ---
EXAM: AP View of the chest DATE: 07/24/2018 9:44 AM INDICATION: SHORT OF BREATH COMPARISON: 06/21/2018, CT 05/18/2018 FINDINGS: Cardiac device obscures a portion of the left chest/heart, stable. The heart is not enlarged. Mediastinal and hilar contours are normal. Calcified granulomas are seen in the hilum. No focal parenchymal airspace opacity. No pleural effusion or pneumothorax. Progressively healing left lateral rib fractures, left 8, 9 and 10 laterally. IMPRESSION: 1. No evidence for acute cardiopulmonary process 2. Progressively healing left lateral rib fractures are now seen with subtle periosteal reaction and callus formation Electronically signed by: David Hirsch MD (07/24/2018 10:56 AM) [facility]
[2018-07-24 11:14] LABS: ALBUMIN 3.2 g/dL (3.4-5.0); ALBUMIN/GLOBULIN RATIO 0.7 (1.0-1.7); CALCIUM 9.4 mg/dL (8.5-10.1); CREATININE 1.7 mg/dL (0.7-1.3); GFR 46.9; POTASSIUM 4.2 mmol/L (3.5-5.1); TOTAL BILIRUBIN 0.4 mg/dL (0.2-1.0); TOTAL PROTEIN 8.1 g/dL (6.4-8.2)
[2018-07-24 12:12] LABS: BACTERIA,URINE 0 /HPF (0-FEW); BILIRUBIN,URINE NEG (NEG); CLARITY,URINE CLEAR; COLOR,URINE YELLOW; GLUCOSE,URINE NEG (NEG); NITRITE,URINE NEG (NEG); SQUAMOUS EPITHELIAL CELL,UR OCC /LPF; UROBILINOGEN,URINE 0.2 mg/dL (0.2 mg/dL); WBC,URINE 0 /HPF (0-4)
--- NOTE | 2018-07-24 12:28 | EKG ---
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
[2018-07-24] MEDS ORDERED: IV NORMAL SALINE 1,000ML 1,000 ML IV ONE (12:30)
== END 2018-07-24 14:05 | disposition home or self-care (01) ==
LOC: ER 10:29
DX: R07.89 Other chest pain (principal); I11.0 Hypertensive heart disease with heart failure; E86.0 Dehydration; F03.90 Unspecified dementia, unspecified severity, without behavioral disturbance, psychotic disturbance, mood disturbance, and anxiety; R79.89 Other specified abnormal findings of blood chemistry; E11.9 Type 2 diabetes mellitus without complications; E78.00 Pure hypercholesterolemia, unspecified; Z86.73 Personal history of transient ischemic attack (TIA), and cerebral infarction without residual deficits
CPT/HCPCS: 36415; 71045; 80053; 81001; 83880; 84484; 85025; 87086; 93005; 96360; 99284; J7030

== ENCOUNTER 2018-08-18 13:44 | Emergency (ER) | payer MEDICARE ==
[~2018-08-18] VITALS: Ht 165.1 cm; Wt 51.0 kg
--- NOTE | 2018-08-18 14:04 | EKG ---
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
--- NOTE | 2018-08-18 14:21 | PHYS DOC ---
Past History Past Medical History: CVA, Dementia, Diabetes Past Surgical History: Other Alcohol Use: None Drug Use: None Adult General Chief Complaint Chief Complaint: UPPER EXTREMITY PAIN HPI HPI 83-year-old male presents with left arm pain and left-sided pain. The patient has dementia. He is normally only oriented to person and place. He complains that the middle section of his left arm is hurting. His family provides most of the history. Family denies any falls that they're aware of. The patient does have a history of falls. Patient is also complaining that the left side of his chest was bothering him today as well. Patient has not had a fever at home. He was doing well until he started complaining about this arm and side pain. Review of Systems Review of Systems Constitutional: Denies fever or chills [] Eyes: Denies change in visual acuity, redness, or eye pain [] HENT: Denies nasal congestion or sore throat [] Respiratory: Denies cough or shortness of breath [] Cardiovascular: No additional information not addressed in HPI [] GI: Denies abdominal pain, nausea, vomiting, bloody stools or diarrhea [] : Denies dysuria or hematuria [] Musculoskeletal: Left arm pain[] Integument: Denies rash or skin lesions [] Neurologic: Denies headache, focal weakness or sensory changes [] Endocrine: Denies polyuria or polydipsia [] All other systems were reviewed and found to be within normal limits, except as documented in this note. Current Medications Current Medications Current Medications Medications (Trade) Dose Ordered Sig/Cesario Start Time Stop Time Status Last Admin Dose Admin Clonidine HCl (Catapres) 0.1 mg 1X ONCE 08/18/18 14:30 08/18/18 14:31 Allergies Allergies Allergies Coded Allergies Type Severity Reaction Last Updated Verified No Known Drug Allergies 01/22/14 No Physical Exam Physical Exam Constitutional: Well developed, well nourished, no acute distress, non-toxic appearance. [] HENT: Normocephalic, atraumatic, bilateral external ears normal, oropharynx moist, no oral exudates, nose normal. [] Eyes: PERRLA, EOMI, conjunctiva normal, no discharge. [] Neck: Normal range of motion, no tenderness, supple, no stridor. [] Cardiovascular:Heart rate regular rhythm, no murmur [] Lungs & Thorax: Bilateral breath sounds clear to auscultation [] Abdomen: Bowel sounds normal, soft, no tenderness, no masses, no pulsatile masses. [] Skin: Warm, dry, no erythema, no rash. [] Back: No tenderness, no CVA tenderness. [] Extremities: Mild tenderness over the left elbow region, no obvious deformity. Brace on the left leg.[] Neurologic: Alert to person and place, normal motor function, normal sensory function, left sided weakness. [] Psychologic: Affect normal, judgement normal, mood normal. [] Current Patient Data Vital Signs Vital Signs Date Time Temp Pulse Resp B/P (MAP) Pulse Ox O2 Delivery O2 Flow Rate FiO2 08/18/18 13:54 98.0 92 18 98 Room Air EKG EKG Sinus rhythm, rate 94, normal axis, no ST elevations or depressions.[] Radiology/Procedures Radiology/Procedures [] Impressions: CHEST AP ONLY History: CHEST PAIN TODAY Comparison: Chest CTA May 18, 2018; July 24, 2018 radiograph Findings: Single view of the chest is submitted. There is no lobar consolidation, pleural fluid, pneumothorax. There is again electronic device projecting of the left hemithorax. There is again paratracheal mass/goiter as seen on CT emanating from thyroid gland. Heart size is stable. Impression: 1. No acute radiographic abnormality is identified. 2. There is again thyroid mass/goiter. Electronically signed by: Eliceo Eng MD (08/18/2018 2:37 PM) [facility] DICTATED AND SIGNED BY: ELICEO ENG MD DATE: 08/18/18 1436 CC: KAUSHIK MARKS DO; ROXANNE CALVILLO MD ELBOW LEFT 2V History: Contracted elbow, left elbow pain, stroke Comparison: None. Findings: 3 views left elbow are submitted. No acute fracture or dislocation is identified. There is no significant displacement of the fat pads about the elbow. Impression: 1. No acute osseous abnormality is identified. Electronically signed by: Eliceo Eng MD (08/18/2018 2:35 PM) [facility] DICTATED AND SIGNED BY: ELICEO ENG MD DATE: 08/18/18 1436 CC: KAUSHIK MARKS DO; ROXANNE CALVILLO MD Course & Med Decision Making Course & Med Decision Making Pertinent Labs and Imaging studies reviewed. (See chart for details) The patient's x-rays are negative for acute findings. His labs significant for an elevated creatinine. His most recent creatinine from 3 weeks ago is similar. Troponin is negative. His EKG is unremarkable. Not sure why the patient's having pain in that left arm. It is likely muscular pain. I will advise Tylenol to manage the pain. The patient is stable for discharge at this time. [] Dragon Disclaimer Dragon Disclaimer This electronic medical record was generated, in whole or in part, using a voice recognition dictation system. Departure Departure: Impression: Primary Impression: Left arm pain Additional Impression: Back pain Disposition: 01 HOME, SELF-CARE Condition: STABLE Referrals: ROXANNE CALVILLO MD (PCP) Patient Instructions: Low Back Strain with Rehab-SportsMed Problem Qualifiers Additional Impression: Back pain Back pain location: low back pain Chronicity: acute Back pain laterality: unspecified Sciatica presence: without sciatica Qualified Codes: M54.5 - Low back pain KAUSHIK MARKS DO Aug 18, 2018 14:21
[2018-08-18] MEDS ORDERED: cloNIDine HCL 0.1 MG TABLET PO ONE (14:30)
[2018-08-18 14:38] LABS: BASO # 0.1 x10^3/uL (0.0-0.2); BASO % 1 % (0-3); EOS # 0.3 x10^3/uL (0.0-0.7); EOS % 4 % (0-3); HEMOGLOBIN 12.8 g/dL (13.0-17.5); LYMPH # 1.9 x10^3/uL (1.0-4.8); LYMPH % 28 % (24-48); MEAN CORPUSCULAR HEMOGLOBIN 27 pg (25-35); MEAN CORPUSCULAR HGB CONC 33 g/dL (31-37); MEAN CORPUSCULAR VOLUME 82 fL (79-100); MONO # 0.4 x10^3/uL (0.0-1.1); MONO % 5 % (0-9); NEUT # 4.3 x10^3uL (1.8-7.7); NEUT % 62 % (31-73); PLATELET COUNT 249 x10^3/uL (140-400); RED BLOOD COUNT 4.78 x10^6/uL (4.30-5.70); RED CELL DISTRIBUTION WIDTH 15.2 % (11.5-14.5); WHITE BLOOD COUNT 6.9 x10^3/uL (4.0-11.0)
--- NOTE | 2018-08-18 14:38 | RAD ---
ELBOW LEFT 2V History: Contracted elbow, left elbow pain, stroke Comparison: None. Findings: 3 views left elbow are submitted. No acute fracture or dislocation is identified. There is no significant displacement of the fat pads about the elbow. Impression: 1. No acute osseous abnormality is identified. Electronically signed by: Sal Browne MD (08/18/2018 2:35 PM) [facility]
--- NOTE | 2018-08-18 14:39 | RAD ---
CHEST AP ONLY History: CHEST PAIN TODAY Comparison: Chest CTA May 18, 2018; July 24, 2018 radiograph Findings: Single view of the chest is submitted. There is no lobar consolidation, pleural fluid, pneumothorax. There is again electronic device projecting of the left hemithorax. There is again paratracheal mass/goiter as seen on CT emanating from thyroid gland. Heart size is stable. Impression: 1. No acute radiographic abnormality is identified. 2. There is again thyroid mass/goiter. Electronically signed by: Sal Browne MD (08/18/2018 2:37 PM) [facility]
[2018-08-18 14:47] VITALS: BP 150/81
[2018-08-18 14:59] LABS: ALBUMIN 3.2 g/dL (3.4-5.0); ALBUMIN/GLOBULIN RATIO 0.7 (1.0-1.7); CALCIUM 9.4 mg/dL (8.5-10.1); CREATININE 1.6 mg/dL (0.7-1.3); GFR 50.3; POTASSIUM 4.4 mmol/L (3.5-5.1); TOTAL BILIRUBIN 0.2 mg/dL (0.2-1.0); TOTAL PROTEIN 7.8 g/dL (6.4-8.2)
== END 2018-08-18 15:20 | disposition home or self-care (01) ==
LOC: ER 13:44
DX: M79.602 Pain in left arm (principal); M54.5 Low back pain; R07.89 Other chest pain; F03.90 Unspecified dementia, unspecified severity, without behavioral disturbance, psychotic disturbance, mood disturbance, and anxiety; E11.9 Type 2 diabetes mellitus without complications; Z86.73 Personal history of transient ischemic attack (TIA), and cerebral infarction without residual deficits
CPT/HCPCS: 36415; 71045; 73070; 80053; 84484; 85025; 93005; 99284

== ENCOUNTER 2018-10-19 08:51 | Emergency (ER) | payer MEDICARE, OTHER ==
[~2018-10-19] VITALS: Ht 165.1 cm; Wt 51.0 kg
[2018-10-19] MEDS ORDERED: IV NORMAL SALINE 1,000ML 1,000 ML IV ONE (09:15)
--- NOTE | 2018-10-19 09:41 | PHYS DOC ---
Past History Past Medical History: Cancer, CVA, Dementia, Diabetes, Glaucoma, High Cholesterol, Hypertension Past Surgical History: Hip Replacement Alcohol Use: None Drug Use: None Adult General Chief Complaint Chief Complaint: HYPOTENSION HPI HPI 83-year-old male presents with concern for hypotension. His caregivers accompany him and state that he had a blood pressure of 90s over 50s. The patient has not been eating or drinking very much lately and they were concerned he was dehydrated or there may be more going on. Patient has not had a fever. He is not complaining of anything. He has a history of stroke which resulted in left sided deficits. He has not been coughing. He denies shortness of breath or chest pain. In the ED his blood pressure is 139/66. Review of Systems Review of Systems Constitutional: Denies fever or chills [] Eyes: Denies change in visual acuity, redness, or eye pain [] HENT: Denies nasal congestion or sore throat [] Respiratory: Denies cough or shortness of breath [] Cardiovascular: No additional information not addressed in HPI [] GI: Denies abdominal pain, nausea, vomiting, bloody stools or diarrhea [] : Denies dysuria or hematuria [] Musculoskeletal: Denies back pain or joint pain [] Integument: Denies rash or skin lesions [] Neurologic: Denies headache, focal weakness or sensory changes [] Endocrine: Denies polyuria or polydipsia [] All other systems were reviewed and found to be within normal limits, except as documented in this note. Current Medications Current Medications Current Medications Medications (Trade) Dose Ordered Sig/Cesario Start Time Stop Time Status Last Admin Dose Admin Sodium Chloride 1,000 ml @ 1,000 mls/hr 1X ONCE 10/19/18 09:15 10/19/18 10:14 Allergies Allergies Allergies Coded Allergies Type Severity Reaction Last Updated Verified No Known Drug Allergies 01/22/14 No Physical Exam Physical Exam Constitutional: Well developed, well nourished, no acute distress, non-toxic appearance. [] HENT: Normocephalic, atraumatic, bilateral external ears normal, oropharynx dry, no oral exudates, nose normal. [] Eyes: PERRLA, EOMI, conjunctiva normal, no discharge. [] Neck: Normal range of motion, no tenderness, supple, no stridor. [] Cardiovascular: Heart rate regular rhythm, no murmur [] Lungs & Thorax: Bilateral breath sounds clear to auscultation [] Abdomen: Bowel sounds normal, soft, no tenderness, no masses, no pulsatile masses. [] Skin: Warm, dry, no erythema, no rash. [] Back: No tenderness, no CVA tenderness. [] Extremities: No tenderness, no cyanosis, no clubbing, ROM intact, no edema. [] Neurologic: Alert and oriented X 3, normal motor function, normal sensory function, no focal deficits noted. [] Psychologic: Affect normal, judgement normal, mood normal. [] Current Patient Data Vital Signs Vital Signs Date Time Temp Pulse Resp B/P (MAP) Pulse Ox O2 Delivery O2 Flow Rate FiO2 10/19/18 09:04 97.5 90 12 91 EKG EKG Sinus rhythm, rate 92, normal axis, no ST elevation or depression[] Radiology/Procedures Radiology/Procedures [] Impressions: PORTABLE CHEST 1V Clinical indications: Hypotension. COMPARISON: August 18, 2018. Findings: No acute lung infiltrate or pleural effusion or pulmonary edema or lung mass or pneumothorax is seen. Again seen is thyroid goiter extending in 2 the upper mediastinum. This is stable. 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 The heart size, pulmonary vasculature, mediastinum and both anitra are otherwise unremarkable. Impression: No acute radiographic abnormality is seen. Electronically signed by: Lidia Browning MD (10/19/2018 9:49 AM) [id number] DICTATED AND SIGNED BY: LIDIA BROWNING MD DATE: 10/19/18 0949 CC: KAUSHIK MARKS DO; ROXANNE CALVILLO MD ~ Course & Med Decision Making Course & Med Decision Making Pertinent Labs and Imaging studies reviewed. (See chart for details) The patient's EKG is unremarkable. His chest x-ray is negative for acute findings. His labs remarkable for an elevated creatinine 1.9. Review of his chart shows that his baseline is probably around 1.6. I have given him 1 L normal saline. His blood pressures continued to be fine in the ED. The patient is stable for discharge at this time. [] Dragon Disclaimer Dragon Disclaimer This electronic medical record was generated, in whole or in part, using a voice recognition dictation system. Departure Departure: Impression: Primary Impression: Idiopathic hypotension Disposition: HOME, SELF-CARE Condition: STABLE Referrals: ROXANNE CALVILLO MD (PCP) Patient Instructions: Hypotension, [id number] KAUSHIK MARKS DO October 19, 2018 09:41
--- NOTE | 2018-10-19 09:52 | RAD ---
PORTABLE CHEST 1V Clinical indications: Hypotension. COMPARISON: August 18, 2018. Findings: No acute lung infiltrate or pleural effusion or pulmonary edema or lung mass or pneumothorax is seen. Again seen is thyroid goiter extending in 2 the upper mediastinum. This is stable. 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 The heart size, pulmonary vasculature, mediastinum and both anitra are otherwise unremarkable. Impression: No acute radiographic abnormality is seen. Electronically signed by: Kali Browning MD (10/19/2018 9:49 AM) [id number]
[2018-10-19 10:28] LABS: BASO # 0.1 x10^3/uL (0.0-0.2); BASO % 1 % (0-3); EOS # 0.2 x10^3/uL (0.0-0.7); EOS % 3 % (0-3); HEMOGLOBIN 11.9 g/dL (13.0-17.5); LYMPH % 32 % (24-48); MEAN CORPUSCULAR HEMOGLOBIN 28 pg (25-35); MEAN CORPUSCULAR HGB CONC 32 g/dL (31-37); MEAN CORPUSCULAR VOLUME 86 fL (79-100); MONO # 0.4 x10^3/uL (0.0-1.1); MONO % 7 % (0-9); NEUT # 3.7 x10^3uL (1.8-7.7); NEUT % 57 % (31-73); PLATELET COUNT 235 x10^3/uL (140-400); RED BLOOD COUNT 4.31 x10^6/uL (4.30-5.70); RED CELL DISTRIBUTION WIDTH 17.9 % (11.5-14.5); WHITE BLOOD COUNT 6.4 x10^3/uL (4.0-11.0)
--- NOTE | 2018-10-19 10:36 | EKG ---
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
[2018-10-19 10:59] LABS: ALBUMIN 3.1 g/dL (3.4-5.0); ALBUMIN/GLOBULIN RATIO 0.8 (1.0-1.7); CALCIUM 9.3 mg/dL (8.5-10.1); CREATININE 1.9 mg/dL (0.7-1.3); GFR 41.3; POTASSIUM 4.8 mmol/L (3.5-5.1); TOTAL BILIRUBIN 0.4 mg/dL (0.2-1.0)
[2018-10-19 11:00] VITALS: BP 149/85
== END 2018-10-19 12:31 | disposition home or self-care (01) ==
LOC: ER 08:51
DX: I95.0 Idiopathic hypotension (principal); F03.90 Unspecified dementia, unspecified severity, without behavioral disturbance, psychotic disturbance, mood disturbance, and anxiety; E11.39 Type 2 diabetes mellitus with other diabetic ophthalmic complication; H42 Glaucoma in diseases classified elsewhere; E78.00 Pure hypercholesterolemia, unspecified; I10 Essential (primary) hypertension; Z86.73 Personal history of transient ischemic attack (TIA), and cerebral infarction without residual deficits
CPT/HCPCS: 36415; 71045; 80053; 85025; 93005; 99285-25; J7030

== ENCOUNTER 2018-11-07 09:32 | Emergency (ER) | payer MEDICARE, OTHER ==
[~2018-11-07] VITALS: Ht 165.1 cm; Wt 51.0 kg
[2018-11-07 09:46] VITALS: BP 149/106
[2018-11-07 10:10] LABS: BASO # 0.1 x10^3/uL (0.0-0.2); BASO % 1 % (0-3); EOS # 0.2 x10^3/uL (0.0-0.7); EOS % 2 % (0-3); HEMATOCRIT 34.7 % (39.0-53.0); HEMOGLOBIN 11.6 g/dL (13.0-17.5); LYMPH % 30 % (24-48); MEAN CORPUSCULAR HEMOGLOBIN 28 pg (25-35); MEAN CORPUSCULAR HGB CONC 34 g/dL (31-37); MEAN CORPUSCULAR VOLUME 85 fL (79-100); MONO # 0.4 x10^3/uL (0.0-1.1); MONO % 5 % (0-9); NEUT # 4.2 x10^3uL (1.8-7.7); NEUT % 62 % (31-73); PLATELET COUNT 291 x10^3/uL (140-400); RED CELL DISTRIBUTION WIDTH 16.6 % (11.5-14.5); WHITE BLOOD COUNT 6.7 x10^3/uL (4.0-11.0)
--- NOTE | 2018-11-07 10:14 | RAD ---
CT HEAD WO CONTRAST History: Left-sided weakness Comparison: June 21, 2018 Technique: Noncontrast CT imaging was performed of the head. Exposure: One or more of the following individualized dose reduction techniques were utilized for this examination: 1. Automated exposure control 2. Adjustment of the mA and/or kV according to patient size 3. Use of iterative reconstruction technique. Findings: There is motion degradation. No convincing acute intracranial hemorrhage is identified. There is again third and lateral ventriculomegaly although there is supratentorial atrophy present. There are again old lacunar infarcts of the bilateral basal ganglia and left thalamus. There is a small focus of lower density of the right thalamus about 0.3 cm which may be unchanged although difficult to accurately compare given motion. There is no midline shift or new intra-axial mass effect. Visualized paranasal sinuses and mastoid air cells are overall aerated. Impression: 1. Exam is degraded by motion. There is no evidence of acute intracranial hemorrhage. There is again third and lateral ventriculomegaly although there is supratentorial atrophy present. There are again old lacunar infarcts of the bilateral basal ganglia and left thalamus, also small focus of right thalamus probably unchanged although difficult to compare given motion. Electronically signed by: Sal Browne MD (11/07/2018 10:11 AM) [id number]
--- NOTE | 2018-11-07 10:26 | PHYS DOC ---
Past History Past Medical History: CVA, Hypertension Past Surgical History: No Surgical History Alcohol Use: None Drug Use: None Adult General Chief Complaint Chief Complaint: NEURO SYMPTOMS/DEFICITS [facility] Patient is an 83-year-old male who presents with report of increasing left-sided weakness and speech deficit. Medics indicate that when they had arrived they were not able to tell any difference from when they had seen patient in the past. Patient reportedly does have left-sided weakness that is chronic from a right-sided stroke in the past. Upon family arrival, family indicates that patient had demonstrated some weakness to the right side with difficulty in coordinating movement with his right hand. Family indicates that this is not normal. They stated that he was a little bit off last night when they were over visiting with him but this morning it was a lot more noticeable. They also indicate that patient has been pointing to his abdomen and stating that he is in pain. When asked if he is having abdominal pain specifically, patient points to the left lower abdomen. Patient is not able to assign a number to his level of pain.[] Review of Systems Review of Systems Constitutional: Denies fever or chills [] Respiratory: Denies cough or shortness of breath [] Cardiovascular: No additional information not addressed in HPI [] GI: Complains of left lower abdominal pain without vomiting or diarrhea [] Neurologic: Positive chronic left-sided weakness. Positive acute onset right- sided weakness.[] All other systems were reviewed and found to be within normal limits, except as documented in this note. Allergies Allergies Allergies Coded Allergies Type Severity Reaction Last Updated Verified No Known Drug Allergies 01/22/14 No Physical Exam Physical Exam Constitutional: Well developed, well nourished, no acute distress, non-toxic appearance. [] HENT: Normocephalic, atraumatic, bilateral external ears normal, oropharynx dry, no oral exudates, nose normal. [] Eyes: PERRLA, EOMI, conjunctiva normal, no discharge. [] Neck: Normal range of motion, no tenderness, supple. [] Cardiovascular: Regular rate and rhythm[] Lungs & Thorax: Bilateral breath sounds clear to auscultation [] Abdomen: Bowel sounds normal, soft, no tenderness. [] Skin: Warm, dry, no erythema, no rash. [] Extremities: No tenderness, no cyanosis, no clubbing, ROM intact, no edema. 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 [] Current Patient Data Vital Signs Vital Signs Date Time Temp Pulse Resp B/P (MAP) Pulse Ox O2 Delivery O2 Flow Rate FiO2 11/07/18 09:46 97.9 101 18 100 Room Air Lab Results Laboratory Tests Test 11/07/18 09:56 White Blood Count 6.7 x10^3/uL (4.0-11.0) Red Blood Count 4.10 x10^6/uL (4.30-5.70) L Hemoglobin 11.6 g/dL (13.0-17.5) L Hematocrit 34.7 % (39.0-53.0) L Mean Corpuscular Volume 85 fL (79-100) Mean Corpuscular Hemoglobin 28 pg (25-35) Mean Corpuscular Hemoglobin Concent 34 g/dL (31-37) Red Cell Distribution Width 16.6 % (11.5-14.5) H Platelet Count 291 x10^3/uL (140-400) Neutrophils (%) (Auto) 62 % (31-73) Lymphocytes (%) (Auto) 30 % (24-48) Monocytes (%) (Auto) 5 % (0-9) Eosinophils (%) (Auto) 2 % (0-3) Basophils (%) (Auto) 1 % (0-3) Neutrophils # (Auto) 4.2 x10^3uL (1.8-7.7) Lymphocytes # (Auto) 2.0 x10^3/uL (1.0-4.8) Monocytes # (Auto) 0.4 x10^3/uL (0.0-1.1) Eosinophils # (Auto) 0.2 x10^3/uL (0.0-0.7) Basophils # (Auto) 0.1 x10^3/uL (0.0-0.2) EKG EKG [] Radiology/Procedures Radiology/Procedures [] Impressions: PROCEDURE: CT HEAD WO CONTRAST CT HEAD WO CONTRAST History: Left-sided weakness Comparison: June 21, 2018 Technique: Noncontrast CT imaging was performed of the head. Exposure: One or more of the following individualized dose reduction techniques were utilized for this examination: 1. Automated exposure control 2. Adjustment of the mA and/or kV according to patient size 3. Use of iterative reconstruction technique. Findings: There is motion degradation. No convincing acute intracranial hemorrhage is identified. There is again third and lateral ventriculomegaly although there is supratentorial atrophy present. There are again old lacunar infarcts of the bilateral basal ganglia and left thalamus. There is a small focus of lower density of the right thalamus about 0.3 cm which may be unchanged although difficult to accurately compare given motion. There is no midline shift or new intra-axial mass effect. Visualized paranasal sinuses and mastoid air cells are overall aerated. Impression: 1. Exam is degraded by motion. There is no evidence of acute intracranial hemorrhage. There is again third and lateral ventriculomegaly although there is supratentorial atrophy present. There are again old lacunar infarcts of the bilateral basal ganglia and left thalamus, also small focus of right thalamus probably unchanged although difficult to compare given motion. Electronically signed by: Sal Browne MD (11/07/2018 10:11 AM) [id number] Course & Med Decision Making Course & Med Decision Making Pertinent Labs and Imaging studies reviewed. (See chart for details) [] Dragon Disclaimer Dragon Disclaimer This electronic medical record was generated, in whole or in part, using a voice recognition dictation system. Departure Departure: Impression: Primary Impression: Right sided weakness Additional Impressions: Hydroureter Abdominal pain Disposition: [facility]F [facility] Admitting Physician: Agustin Barnett Condition: IMPROVED Referrals: ROXANNE CALVILLO MD (PCP) Problem Qualifiers Additional Impressions: Abdominal pain Abdominal location: left lower quadrant Qualified Codes: R10.32 - Left lower quadrant pain CELSA QUEVEDO Jr. DO Nov 07, 2018 10:26
[2018-11-07 10:30] LABS: ALBUMIN 3.3 g/dL (3.4-5.0); ALBUMIN/GLOBULIN RATIO 0.8 (1.0-1.7); CALCIUM 9.5 mg/dL (8.5-10.1); CREATININE 1.8 mg/dL (0.7-1.3); GFR 43.9; MAGNESIUM 1.4 mg/dL (1.8-2.4); TOTAL BILIRUBIN 0.4 mg/dL (0.2-1.0); TOTAL PROTEIN 7.5 g/dL (6.4-8.2)
[2018-11-07 11:18] LABS: BACTERIA,URINE 0 /HPF (0-FEW); BILIRUBIN,URINE NEG (NEG); CLARITY,URINE HAZY; COLOR,URINE AMBER; GLUCOSE,URINE NEG (NEG); NITRITE,URINE NEG (NEG); SQUAMOUS EPITHELIAL CELL,UR FEW /LPF; UROBILINOGEN,URINE 0.2 mg/dL (0.2 mg/dL); WBC,URINE RARE /HPF (0-4)
--- NOTE | 2018-11-07 12:10 | RAD ---
Examination: CT of the abdomen pelvis without contrast HISTORY: History of abdominal pain COMPARISON: 08/08/2017 TECHNIQUE: Axial CT images of the abdomen pelvis were performed without contrast. Coronal and sagittal deformities are performed. Exposure: One or more of the following individualized dose reduction techniques were utilized for this examination: 1. Automated exposure control 2. Adjustment of the mA and/or kV according to patient size 3. Use of iterative reconstruction technique FINDINGS: Minimal bibasilar lung atelectasis. No evidence of free air identified in the abdomen. The evaluation of the solid organs is limited due to lack of IV contrast. The evaluation of bowel is limited due to lack of oral contrast. The visualized noncontrasted liver, spleen, adrenals grossly appears unremarkable. The stomach is mildly distended. The gallbladder is likely collapsed with possible gallstone within the proximal gallbladder. The pancreas is not well-visualized due to motion. The small bowel is nondilated. The visualized appendix appears unremarkable. Feces and gas noted in the colon. Moderate amount of feces and gas identified in the rectum could be constipation or fecal impaction. Mild right-sided hydronephrosis and moderate left-sided hydronephrosis is identified. Moderate left hydroureter is identified. There is mucosal thickening identified in the distal left ureter best visualized on series 2 image #100 however the distal most aspect of the ureter evaluation is limited due to streak artifact from left hip prosthesis. There is possible thickened appearance of the wall of the urinary bladder particularly on the right with the some layering of hyperdensity in the right posterior urinary bladder could be debris or tiny stones. Moderate enlarged prostate gland with central prostatic calcifications identified. Linear sclerotic density identified in the L1, L2, L3 vertebral bodies about the endplates probably secondary degeneration. A IVC filter is identified. IMPRESSION: 1. Moderate left-sided hydronephrosis and hydroureter and mild right-sided hydroureter. There is thickened appearance of the wall of the distal left ureter and the urinary bladder wall on the right. Underlying mucosal pathology such as neoplasm is not excluded, further evaluation can be considered with CT urogram if clinically feasible. Evaluation is limited due to streak artifact from left hip prosthesis. 2. Layering of small hyperdensity identified in the posterior right urinary bladder could be layering of tiny stones or debris. 3. Large amount of stool identified in the rectum could be due to fecal impaction or constipation. 4. Linear sclerotic densities identified in the L1, L2, L3 vertebral bodies at the endplates probably due to degeneration similar to prior exam. Electronically signed by: Gino Dillon MD (11/07/2018 12:07 PM) [place] [id number]
[2018-11-07] MEDS ORDERED: ONDANSETRON PF 4 MG/2 ML VIAL. IV ONE (12:45)
[2018-11-07] MEDS ORDERED: HYDROmorphone PF 1 MG/ML DISP.SYRIN IV ONE (12:45)
[2018-11-07] MEDS ORDERED: IV NORMAL SALINE 1,000ML 1,000 ML IV ONE (13:15)
--- NOTE | 2018-11-07 14:09 | EKG ---
[address] [address] Test Date: 2018-11-07 Test Time: 10:16:07 Pat Name: KENDAL RESENDEZ Department: Room: Gender: M [employer] Research Specialist: : [id number] Requested By: CELSA QUEVEDO Order Number: [id number] Reading MD: Measurements Intervals [place] Rate: 89 P: 64 WI: 158 QRS: 36 QRSD: 86 T: 53 QT: 334 QTc: 407 Interpretive Statements SINUS RHYTHM QRS(T) CONTOUR ABNORMALITY CONSIDER ANTEROSEPTAL MYOCARDIAL DAMAGE POSSIBLY ABNORMAL ECG RI6.01 No previous ECG available for comparison
== END 2018-11-07 14:50 | disposition short-term general hospital (02) ==
LOC: ER 09:32
DX: R53.1 Weakness (principal); N13.4 Hydroureter; R10.32 Left lower quadrant pain; I10 Essential (primary) hypertension; Z86.73 Personal history of transient ischemic attack (TIA), and cerebral infarction without residual deficits
CPT/HCPCS: 36415; 70450; 74176; 80053; 81001; 83735; 84484; 85025; 93005; 99285

== ENCOUNTER 2018-11-14 16:40 | Inpatient (IN) | payer MEDICARE, OTHER ==
[~2018-11-14] VITALS: Ht 165.1 cm; Wt 49.9 kg
[2018-11-14 17:02] VITALS: BP 125/81
--- NOTE | 2018-11-14 18:10 | RAD ---
AP chest x-ray HISTORY: Shortness of breath, tachycardia leukocytosis. COMPARISON: Chest x-ray October 19, 2018. FINDINGS: IVC filter. Implanted electronic recording device left chest. Abnormal widening upper mediastinum related to a large substernal thyroid goiter on prior CT imaging again noted. Thoracic aortic calcified plaque. Heart size normal. Calcified granulomas right hilum and right upper lobe. Skinfold artifact right lateral lung base. No pneumothorax, pulmonary opacities or pleural effusions. Bones are unremarkable. IMPRESSION: No acute process. Stable exam as described above. Electronically signed by: Donovan Carreon MD (11/14/2018 6:07 PM) [facility]
[2018-11-14] MEDS ORDERED: ONDANSETRON PF 4 MG/2 ML VIAL. IV PRN (18:15)
[2018-11-14] MEDS ORDERED: ACETAMINOPHEN 325 MG TABLET PO PRN (18:15)
[2018-11-14] MEDS ORDERED: IV NORMAL SALINE 1,000ML 1,000 ML IV ONE (18:15)
--- NOTE | 2018-11-14 18:21 | HP ---
ADMIT DATE: 11/14/2018 HISTORY OF PRESENT ILLNESS: The patient is an 83-year-old -[place] male patient who was discharged from [facility] on 11/12/2018. He was originally admitted there for new onset right-sided weakness and aphasia and also found to have bilateral hydronephrosis for which he has an indwelling Rodriguez catheter. His urine culture has grown Escherichia coli that is sensitive to almost all antibiotics except ampicillin and gentamicin, tetracycline, trimethoprim and sulfamethoxazole and was discharged to [facility] to continue on a course of amoxicillin, clavulanic acid and to continue with indwelling Rodriguez catheter. He was noted yesterday to be more lethargic and lab work there showed that his kidney function has risen. In fact his creatinine on the day of discharge from [facility] was 1.6 and yesterday it was 1.8. His white cell count was also elevated and in fact on the day of discharge from [facility] was 8.4 and yesterday was 15,000. As we did increase his fluid intake and repeated his lab work this morning, unfortunately his creatinine and BUN has risen to almost 30 and creatinine has risen to 2.2. His white cell count continued to be high and therefore, a decision was made to admit him to [facility] to investigate this further. The patient himself does not really give useful information. PAST MEDICAL HISTORY: Significant for hypertension, hyperlipidemia, prostate cancer, right middle cerebral artery territory infarct with left side hemiplegia. He has also had recent diagnosis of bilateral hydronephrosis and bladder outlet obstruction for which he required an indwelling Rodriguez catheter and also urinary tract infection with growth of E.coli. PAST SURGICAL HISTORY: Significant for bilateral cataract extraction. ALLERGIES: He has no known drug allergies. FAMILY HISTORY: He has 2 brothers. Older one of prostate cancer and the other one of sepsis. One sister has also breast cancer. SOCIAL HISTORY: He is , lives with his , has 5 daughters and 4 sons. He is an ex-smoker, quit about 25 years ago. He used to smoke a pack a day and smoked for a long time. 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 REVIEW OF SYSTEMS: Difficult to obtain as the patient has aphasia. PHYSICAL EXAMINATION: GENERAL: On arrival to [facility], he looked pale, cachectic, but no jaundice, cyanosis or thyromegaly. No jugular venous distension. No limb edema. VITAL SIGNS: Her heart rate was 130, blood pressure 125/81, temperature was 97.4, hematocrit was 24, and oxygen saturation was 97%. EXAMINATION OF THE HEAD, EYES, EARS, NOSE AND THROAT: Showed normocephalic, atraumatic. NECK: Supple. HEART: Showed normal first and second heart sounds with no gallop, rub or murmur. CHEST: Clear to auscultation. No crepitation or rhonchi. ABDOMEN: Distended, soft, nontender. No guarding or rigidity. No organomegaly. All hernial orifice intact. Bowel sounds normal. NEUROLOGIC: He is awake, alert, but has expressive aphasia. He has also left-sided hemiplegia. He has an indwelling Rodriguez catheter. ASSESSMENT: Acute on chronic kidney injury, leukocytosis, bladder outlet obstruction with bilateral hydronephrosis, hypertension, hyperlipidemia, right middle cerebral artery territory infarct with left side hemiplegia. PLAN: My plan is to repeat all his lab work. We will resume all his medication. I will stop the Augmentin. We will bladder scan him and may be flush or change the catheter if need be to absolutely make sure that there is no evidence of obstruction. I will check also his chest x-ray and we might have to broaden his antibiotics too if he has any evidence of pneumonia. THUY FLORES MD DR: BONG/wolfgang JOB#: [id number] / [id number]
[2018-11-14 18:23] LABS: ALBUMIN 2.8 g/dL (3.4-5.0); ALBUMIN/GLOBULIN RATIO 0.5 (1.0-1.7); CALCIUM 9.2 mg/dL (8.5-10.1); CREATININE 2.5 mg/dL (0.7-1.3); GFR 30.1; POTASSIUM 4.2 mmol/L (3.5-5.1); TOTAL BILIRUBIN 0.6 mg/dL (0.2-1.0)
[2018-11-14] MEDS ORDERED: TAMS0.4C97 PO (18:24)
[2018-11-14] MEDS: IV NORMAL SALINE 1,000ML 1,000 ML IV SCH ×2 (18:37→23:36)
[2018-11-14] MEDS ORDERED: PIP/TAZO PER PHARMACY MC PRN (18:45)
[2018-11-14 18:52] LABS: BASO % 0 % (0-3); EOS % 0 % (0-3); HEMATOCRIT 32.8 % (39.0-53.0); HEMOGLOBIN 10.9 g/dL (13.0-17.5); LYMPH # 0.6 x10^3/uL (1.0-4.8); LYMPH % 5 % (24-48); MEAN CORPUSCULAR HEMOGLOBIN 28 pg (25-35); MEAN CORPUSCULAR HGB CONC 33 g/dL (31-37); MEAN CORPUSCULAR VOLUME 85 fL (79-100); MONO # 0.5 x10^3/uL (0.0-1.1); MONO % 4 % (0-9); NEUT # 10.9 x10^3uL (1.8-7.7); NEUT % 90 % (31-73); PLATELET COUNT 265 x10^3/uL (140-400); RED BLOOD COUNT 3.85 x10^6/uL (4.30-5.70); RED CELL DISTRIBUTION WIDTH 16.9 % (11.5-14.5); WHITE BLOOD COUNT 12.1 x10^3/uL (4.0-11.0)
[2018-11-14] MEDS ORDERED: AMOX1TAB61 PO (19:14)
[2018-11-14] MEDS ORDERED: POLY17PO5 PO (19:14)
[2018-11-14] MEDS ORDERED: ACET325T9 PO (19:14)
[2018-11-14] MEDS ORDERED: SENN1TAB62 PO (19:14)
[2018-11-14] MEDS ORDERED: DEXTROSE 50% 25 GM / 50ML DISP.SYRIN. IV PRN (20:00)
[2018-11-14] MEDS: PIPERACILLIN/TAZOBACTAM 2.25 GM in IV NORMAL SALINE 50ML 50 ML IV SCH (20:31)
[2018-11-14] MEDS: TAMSULOSIN 0.4 MG CAP.ER.24H. PO SCH (20:38)
[2018-11-14] MEDS: TIMOLOL 0.25% OPHTH SOLUTION 5ML BOTTLE. OU SCH (20:38)
[2018-11-14 22:34] VITALS: BP 159/69
[2018-11-14 23:38] LABS: BACTERIA,URINE FEW /HPF (0-FEW); BILIRUBIN,URINE NEG (NEG); CLARITY,URINE CLEAR; COLOR,URINE YELLOW; GLUCOSE,URINE 250 mg/dL (NEG); NITRITE,URINE NEG (NEG); UROBILINOGEN,URINE 1 mg/dL (0.2 mg/dL)
[2018-11-15] MEDS: PIPERACILLIN/TAZOBACTAM 2.25 GM in IV NORMAL SALINE 50ML 50 ML IV SCH ×4 (02:10→20:47)
[2018-11-15 05:51] LABS: HEMATOCRIT 27.2 % (39.0-53.0); HEMOGLOBIN 9.2 g/dL (13.0-17.5); RED BLOOD COUNT 3.25 x10^6/uL (4.30-5.70); RED CELL DISTRIBUTION WIDTH 16.9 % (11.5-14.5); WHITE BLOOD COUNT 8.5 x10^3/uL (4.0-11.0)
[2018-11-15 06:07] LABS: ALBUMIN 2.2 g/dL (3.4-5.0); ALBUMIN/GLOBULIN RATIO 0.5 (1.0-1.7); CALCIUM 8.3 mg/dL (8.5-10.1); GFR 38.9; POTASSIUM 3.6 mmol/L (3.5-5.1); TOTAL BILIRUBIN 0.6 mg/dL (0.2-1.0); TOTAL PROTEIN 6.4 g/dL (6.4-8.2)
[2018-11-15 06:11] VITALS: BP 148/77
[2018-11-15] MEDS: INSULIN LISPRO 300 UNITS/3 ML INSULN.PEN. SQ SCH ×3 (07:19→16:50)
[2018-11-15] MEDS: LACTOBACILLUS RHAMNOSUS GG 1 CAPSULE. PO SCH ×3 (08:13→21:11)
[2018-11-15] MEDS: TIMOLOL 0.25% OPHTH SOLUTION 5ML BOTTLE. OU SCH ×2 (08:13→21:11)
[2018-11-15] MEDS: ASPIRIN 81 MG TAB.CHEW PO SCH (08:13)
[2018-11-15] MEDS: ATORVASTATIN CALCIUM 20 MG TABLET PO SCH (08:13)
[2018-11-15] MEDS: IV NORMAL SALINE 1,000ML 1,000 ML IV SCH (09:03)
[2018-11-15 11:25] VITALS: BP 176/83
[2018-11-15] MEDS: IV 1/2 NORMAL SALINE 1,000 ML IV SCH (16:04)
[2018-11-15 16:14] VITALS: BP 132/68
[2018-11-15 20:04] VITALS: BP 141/87
[2018-11-15] MEDS: TAMSULOSIN 0.4 MG CAP.ER.24H. PO SCH ×2 (21:00→21:11)
[2018-11-16] MEDS: PIPERACILLIN/TAZOBACTAM 2.25 GM in IV NORMAL SALINE 50ML 50 ML IV SCH ×4 (02:50→20:21)
--- NOTE | 2018-11-16 05:08 | PN ---
DATE: 11/15/2018 SUBJECTIVE: The patient is resting, slightly propped up in bed, in no apparent respiratory distress. He is awake, alert. On questioning him, he denied any complaint. The nursing staff did not voice any concern and stated that he had an uneventful night. PHYSICAL EXAMINATION: GENERAL: When I examined him, he looked pale, cachectic, no jaundice, cyanosis, or thyromegaly. No jugular venous distension. No limb edema. VITAL SIGNS: Her heart rate was 99, blood pressure was 176/83, temperature was 96.9, respiratory rate was 18, and oxygen saturation was 92% on room air. HEAD, EYES, EARS, NOSE AND THROAT: Showed normocephalic, atraumatic. NECK: Supple. HEART: Showed normal first and second heart sounds. No gallop, rub or murmur. CHEST: Clear to auscultation. No crepitation or rhonchi. ABDOMEN: Distended, soft, nontender. No guarding or rigidity. No organomegaly. All hernial orifices intact. Bowel sounds normal. NEUROLOGIC: He was awake, alert, responding appropriately. All cranial nerves intact. He moves extremities without difficulty. He has a left-sided hemiplegia. His intake and output are incompletely recorded. LABORATORY DATA: Her lab work this morning showed a white cell count down to 8500, hemoglobin was 9.2, hematocrit 27, MCV 84 and platelet count 223,000. His serum sodium was 143, potassium 3.6, chloride 108, bicarbonate 21, anion gap of 14, BUN 32, creatinine 2, estimated GFR was 39 mL per minute, his glucose 151, calcium was 8.3. Total bilirubin, AST, ALT, alkaline phosphatase were normal. Total protein was 6.4, albumin was 2.2. His urinalysis showed that urine was yellow, clear with a pH of 5.5, specific gravity of 1.020. There was a large amount of protein, a large amount of glucose, negative for ketones, a large amount of blood, negative for nitrites. There was trace of leukocyte esterase, 6-10 rbc's, and 1-4 wbc's, very few bacteria. His nasal screen for MRSA PCR was negative. IMPRESSION: So in summary, this is an 83-year-old -[place] male patient who was admitted yesterday with: 1. Acute on chronic kidney injury. 2. Leukocytosis. 3. Bladder outlet obstruction with bilateral hydronephrosis. 4. Hypertension. 5. Hyperlipidemia. 6. Right middle cerebral artery territory infarct, left side hemiplegia. PLAN: The patient's kidney function is improving, his creatinine came down from 2.5 to ____. White cell count is down. The plan is to continue with IV fluids, probably cut down his IV fluid to half normal saline. Continue with IV Zosyn and Zyvox. Monitor his lab work closely and decide on further management accordingly. THUY FLORES MD DR: BONG/wolfgang JOB#: [id number] / [id number]
[2018-11-16 06:06] LABS: CALCIUM 8.4 mg/dL (8.5-10.1); CREATININE 1.8 mg/dL (0.7-1.3); GFR 43.9; POTASSIUM 3.8 mmol/L (3.5-5.1)
[2018-11-16 07:39] VITALS: BP 149/74
[2018-11-16] MEDS: INSULIN LISPRO 300 UNITS/3 ML INSULN.PEN. SQ SCH ×3 (07:40→17:32)
[2018-11-16] MEDS: IV 1/2 NORMAL SALINE 1,000 ML IV SCH ×2 (08:07→20:20)
[2018-11-16] MEDS: ATORVASTATIN CALCIUM 20 MG TABLET PO SCH (08:07)
[2018-11-16] MEDS: LACTOBACILLUS RHAMNOSUS GG 1 CAPSULE. PO SCH ×2 (08:07→20:21)
[2018-11-16] MEDS: TIMOLOL 0.25% OPHTH SOLUTION 5ML BOTTLE. OU SCH ×2 (08:07→20:21)
[2018-11-16] MEDS: ASPIRIN 81 MG TAB.CHEW PO SCH (08:07)
[2018-11-16 12:05] VITALS: BP 115/59
[2018-11-16 15:34] VITALS: BP 142/80
[2018-11-16 19:30] VITALS: BP 131/74
[2018-11-16] MEDS: TAMSULOSIN 0.4 MG CAP.ER.24H. PO SCH (20:21)
[2018-11-16] MEDS: LINEZOLID 600 MG TABLET PO SCH (20:45)
--- NOTE | 2018-11-16 22:33 | PN ---
DATE: 11/16/2018 SUBJECTIVE: The patient is resting, slightly propped up in bed, in no apparent distress. He is apparently more awake, alert, participated in physical and occupational therapy and sat on his wheelchair for a while. He ate all his breakfast, but did not eat his lunch. His blood cultures have grown positive coccobacilli in 1 of 4 bottles. It could be obviously contaminant; however, he did grow Escherichia coli in his urine culture at [facility], but he did not respond to Augmentin, although in vitro it was sensitive. PHYSICAL EXAMINATION: GENERAL: When I examined him this afternoon, he looked well and was pale, but not jaundiced, or cyanosed. No thyromegaly. No jugular venous distention. No limb edema. VITAL SIGNS: His heart rate was 102, blood pressure 115/59, temperature was 97.8, respiratory rate was 18 and oxygen saturation was 99%. HEAD, EYES, EARS, NOSE AND THROAT: Normocephalic, atraumatic. NECK: Supple. CARDIAC: Normal first and second heart sounds. No gallop, rub or murmur. CHEST: Clear to auscultation. No crepitation or rhonchi. ABDOMEN: Scaphoid, soft, nontender. NEUROLOGIC: He is awake, alert, responding appropriately. He has left-sided hemodialysis. He has an indwelling Rodriguez catheter. His intake was 2700, output was 2100. LABORATORY DATA: His lab work this morning, serum sodium was 139, potassium 3.8, chloride 104, bicarbonate 22, anion gap of 13, BUN 23, creatinine 1.8, estimated GFR was 44 mL per minute. His glucose 146, calcium was 8.4. ASSESSMENT: 1. Acute on chronic kidney injury, improving. 2. Leukocytosis, improved. 3. Bladder outlet obstruction and bilateral hydronephrosis. 4. Hypertension, much better controlled. 5. Hyperlipidemia. 6. Right middle cerebral artery territory infarct with left side hemiplegia. 7. His blood culture is growing cocci and bacilli, gram-positive cocci and bacilli. PLAN: My plan is to continue with IV fluid, continue the IV antibiotic. Await the results of the cultures identification and sensitivity and the patient will discharge once we can deescalate his antibiotic to be given orally. THUY FLORES MD DR: BOGN/wolfgang JOB#: [id number] / [id number]
[2018-11-17] MEDS: PIPERACILLIN/TAZOBACTAM 2.25 GM in IV NORMAL SALINE 50ML 50 ML IV SCH ×4 (01:34→19:51)
[2018-11-17 06:16] VITALS: BP 138/87
[2018-11-17 06:22] LABS: HEMATOCRIT 27.1 % (39.0-53.0); HEMOGLOBIN 9.2 g/dL (13.0-17.5); RED BLOOD COUNT 3.26 x10^6/uL (4.30-5.70); RED CELL DISTRIBUTION WIDTH 17.1 % (11.5-14.5); WHITE BLOOD COUNT 10.6 x10^3/uL (4.0-11.0)
[2018-11-17 06:29] LABS: ALBUMIN 1.8 g/dL (3.4-5.0); ALBUMIN/GLOBULIN RATIO 0.5 (1.0-1.7); CREATININE 1.6 mg/dL (0.7-1.3); GFR 50.3; TOTAL BILIRUBIN 0.8 mg/dL (0.2-1.0); TOTAL PROTEIN 5.8 g/dL (6.4-8.2)
[2018-11-17] MEDS: INSULIN LISPRO 300 UNITS/3 ML INSULN.PEN. SQ SCH ×3 (08:00→17:30)
[2018-11-17] MEDS: LINEZOLID 600 MG TABLET PO SCH ×2 (08:59→19:52)
[2018-11-17] MEDS: TIMOLOL 0.25% OPHTH SOLUTION 5ML BOTTLE. OU SCH ×2 (08:59→19:51)
[2018-11-17] MEDS: ASPIRIN 81 MG TAB.CHEW PO SCH (08:59)
[2018-11-17] MEDS: ATORVASTATIN CALCIUM 20 MG TABLET PO SCH (08:59)
[2018-11-17] MEDS: LACTOBACILLUS RHAMNOSUS GG 1 CAPSULE. PO SCH ×2 (08:59→19:52)
[2018-11-17 11:15] VITALS: BP 133/74
[2018-11-17] MEDS: POTASSIUM CHLORIDE 20 MEQ TABLET.ER. PO SCH ×2 (13:53→19:51)
[2018-11-17 15:57] VITALS: BP 152/77
[2018-11-17] MEDS: IV 1/2 NORMAL SALINE 1,000 ML IV SCH ×2 (17:49→19:53)
[2018-11-17 19:36] VITALS: BP 159/83
[2018-11-17] MEDS: TAMSULOSIN 0.4 MG CAP.ER.24H. PO SCH (19:51)
--- NOTE | 2018-11-17 21:32 | PN ---
DATE: 11/17/2018 SUBJECTIVE: The patient is sitting comfortably in his chair, eating his lunch comfortably in no apparent distress. He did not offer any complaint. Nursing staff, did not voice any concern. PHYSICAL EXAMINATION: GENERAL: He looked pale, cachectic, but no jaundice, cyanosis, or thyromegaly. No jugular venous distension. No lower limb edema. VITAL SIGNS: Her heart rate was 89, blood pressure was 133/74, temperature was 97.6, respiratory rate 20, and oxygen saturation was 95%. HEAD, EYES, EARS, NOSE AND THROAT: Normocephalic, atraumatic. NECK: Supple. HEART: Showed normal first and second heart sounds with no gallop, rub or murmur. CHEST: Clear to auscultation. No crepitation or rhonchi. ABDOMEN: Distended, soft, nontender. No guarding or rigidity. No organomegaly. All hernial orifice intact. Bowel sounds normal. NEUROLOGIC: He is awake, alert, responding appropriately. All cranial nerves intact. He has left side hemiplegia. He has indwelling Rodriguez catheter. His intake was 2700, output was 2100. LABORATORY DATA: His lab work this morning showed his white cell count was 10,600, hemoglobin 9.2, hematocrit 27.1, MCV 83 and platelet count of 137,000. His chemistry showed a serum sodium 136, potassium 3, chloride 102, bicarbonate 21, anion gap of 13, BUN 17, creatinine 1.6, estimated GFR was 50 mL per minute, his glucose 135 and calcium was 8. Total bilirubin, AST, ALT, alkaline phosphatase were normal. Total protein was 5.8, albumin was 1.8. ASSESSMENT: 1. Acute on chronic kidney injury, improving. His creatinine is down to 1.6. 2. Leukocytosis, improved. 3. Bladder outlet obstruction and bilateral hydronephrosis. 4. Hypertension, much better controlled. 5. Hyperlipidemia. 6. Right middle cerebral artery territory infarct, left side hemiplegia. 7. His blood culture has grown out gram-positive cocci and gram-negative rods, identification and sensitivity is still pending. 8. Hypokalemia. PLAN: My plan is to continue with IV fluid, continue with IV antibiotic. Replenish potassium. Followup is suggested with the antibiotic according to the results of identification and sensitivity. THUY FLORES MD DR: Camron JOB#: [id number] / [id number]
[2018-11-17 23:30] LABS: CALCIUM 8.2 mg/dL (8.5-10.1); CREATININE 1.8 mg/dL (0.7-1.3); GFR 43.9; POTASSIUM 3.9 mmol/L (3.5-5.1)
[2018-11-18] MEDS: PIPERACILLIN/TAZOBACTAM 2.25 GM in IV NORMAL SALINE 50ML 50 ML IV SCH ×4 (01:56→20:39)
[2018-11-18 02:01] VITALS: BP 144/80
[2018-11-18 05:41] VITALS: BP 131/75
[2018-11-18 07:07] LABS: CALCIUM 7.9 mg/dL (8.5-10.1); CREATININE 1.7 mg/dL (0.7-1.3); GFR 46.9; POTASSIUM 3.9 mmol/L (3.5-5.1)
[2018-11-18] MEDS: ASPIRIN 81 MG TAB.CHEW PO SCH (07:49)
[2018-11-18] MEDS: INSULIN LISPRO 300 UNITS/3 ML INSULN.PEN. SQ SCH ×3 (07:51→17:00)
[2018-11-18] MEDS: LINEZOLID 600 MG TABLET PO SCH ×2 (09:15→20:38)
[2018-11-18] MEDS: ATORVASTATIN CALCIUM 20 MG TABLET PO SCH (09:15)
[2018-11-18] MEDS: TIMOLOL 0.25% OPHTH SOLUTION 5ML BOTTLE. OU SCH ×2 (09:15→20:38)
[2018-11-18] MEDS: LACTOBACILLUS RHAMNOSUS GG 1 CAPSULE. PO SCH ×2 (09:15→20:38)
[2018-11-18] MEDS: POTASSIUM CHLORIDE 20 MEQ TABLET.ER. PO SCH ×4 (09:16→20:39)
[2018-11-18 11:00] VITALS: BP 136/71
[2018-11-18 16:00] VITALS: BP 146/85
[2018-11-18] MEDS: IV 1/2 NORMAL SALINE 1,000 ML IV SCH ×2 (19:13→23:45)
[2018-11-18 19:20] VITALS: BP 164/73
[2018-11-18] MEDS: TAMSULOSIN 0.4 MG CAP.ER.24H. PO SCH (20:38)
[2018-11-18 23:05] VITALS: BP 140/70
--- NOTE | 2018-11-19 00:38 | PN ---
DATE: 11/18/2018 SUBJECTIVE: The patient is resting, slightly propped up in bed, no apparent distress. Nursing staff stated he has periods of confusion also periods of tachycardia. Heart rate goes up to 110-120, occasionally higher than that, and so far no fever. PHYSICAL EXAMINATION: GENERAL: When I examined him this afternoon, he looked pale, cachectic, but not jaundiced or cyanosed. No lymphadenopathy, no thyromegaly. No jugular venous distension. No lower limb edema. VITAL SIGNS: His heart rate was 89, blood pressure was 136/71, temperature was 98.1, respiratory rate was 18 and oxygen saturation was 100% on room air. HEAD, EYES, EARS, NOSE AND THROAT: Normocephalic, atraumatic. NECK: Supple. HEART: Showed normal first and second heart sounds. No gallop, rub or murmur. CHEST: Clear to auscultation. No crepitation or rhonchi. ABDOMEN: Distended, soft, nontender. No guarding or rigidity. No organomegaly. All hernial orifices intact. Bowel sounds normal. NEUROLOGIC: He is awake, alert, at times confused. All his cranial nerves are intact. He has left-sided hemiparesis. His intake over the last 24 hours was 4500, output was 1025. LABORATORY DATA: His lab work as of this morning showed a serum sodium 137, potassium 3.9, chloride 105, bicarbonate 22, anion gap of 10, BUN 19, creatinine 1.7, estimated GFR was 47 mL per minute. His glucose 173, calcium was 7.9. His white cell count was 10,600, hemoglobin 9, hematocrit 27, MCV 83 and platelet count 237,000. His urinalysis showed trace of leukocyte esterase, 1-4 wbc's, very few bacteria; however, his blood culture showed gram-negative rods in 1 of 4 bottles and also has gram-positive coccobacilli in 1 of 4 bottles. ASSESSMENT: 1. Acute on chronic kidney injury, resolving. His creatinine is down to 1.7. 2. Leukocytosis, improved. 3. Bladder outlet obstruction, bilateral hydronephrosis requiring indwelling Rodriguez catheter. 4. Hypertension, much better controlled. 5. Hyperlipidemia. 6. Right middle cerebral artery territory infarct with left side hemiplegia. 7. Hypokalemia, resolved. 8. His blood cultures have grown gram-positive cocci and gram-negative rods. The identification and sensitivity is still pending. PLAN: To continue with IV fluid, continue with IV antibiotic in the form of linezolid as well as Zosyn. Continue with the tamsulosin. Continue to monitor his blood sugar and adjust insulin as needed. Continue with his eye drops and atorvastatin for his hyperlipidemia. THUY FLORES MD DR: BONG/wolfgang JOB#: [id number] / [id number]
[2018-11-19] MEDS: PIPERACILLIN/TAZOBACTAM 2.25 GM in IV NORMAL SALINE 50ML 50 ML IV SCH ×2 (02:34→08:00)
[2018-11-19 06:15] VITALS: BP 152/68
[2018-11-19 07:05] LABS: BASO # 0.1 x10^3/uL (0.0-0.2); BASO % 0 % (0-3); EOS # 0.1 x10^3/uL (0.0-0.7); EOS % 1 % (0-3); HEMOGLOBIN 8.3 g/dL (13.0-17.5); LYMPH # 0.8 x10^3/uL (1.0-4.8); LYMPH % 6 % (24-48); MEAN CORPUSCULAR HEMOGLOBIN 28 pg (25-35); MEAN CORPUSCULAR HGB CONC 33 g/dL (31-37); MEAN CORPUSCULAR VOLUME 83 fL (79-100); MONO # 0.4 x10^3/uL (0.0-1.1); MONO % 3 % (0-9); NEUT # 11.7 x10^3uL (1.8-7.7); NEUT % 90 % (31-73); PLATELET COUNT 69 x10^3/uL (140-400); RED BLOOD COUNT 3.01 x10^6/uL (4.30-5.70)
[2018-11-19 07:10] LABS: ALBUMIN 1.7 g/dL (3.4-5.0); ALBUMIN/GLOBULIN RATIO 0.4 (1.0-1.7); CREATININE 1.7 mg/dL (0.7-1.3); GFR 46.9; TOTAL BILIRUBIN 1.3 mg/dL (0.2-1.0); TOTAL PROTEIN 5.7 g/dL (6.4-8.2)
[2018-11-19] MEDS: INSULIN LISPRO 300 UNITS/3 ML INSULN.PEN. SQ SCH ×3 (08:00→17:23)
[2018-11-19] MEDS: POTASSIUM CHLORIDE 20 MEQ TABLET.ER. PO SCH ×3 (08:15→20:40)
[2018-11-19] MEDS: LACTOBACILLUS RHAMNOSUS GG 1 CAPSULE. PO SCH ×2 (08:15→20:40)
[2018-11-19] MEDS: TIMOLOL 0.25% OPHTH SOLUTION 5ML BOTTLE. OU SCH ×2 (08:15→20:40)
[2018-11-19] MEDS: LINEZOLID 600 MG TABLET PO SCH ×2 (08:15→20:41)
[2018-11-19] MEDS: ASPIRIN 81 MG TAB.CHEW PO SCH (08:16)
[2018-11-19] MEDS: ATORVASTATIN CALCIUM 20 MG TABLET PO SCH (08:16)
[2018-11-19 09:35] VITALS: BP 140/73
[2018-11-19] MEDS: MEROPENEM 1 GM in IV NORMAL SALINE 100ML 100 ML IV SCH (14:12)
[2018-11-19] MEDS: IV 1/2 NORMAL SALINE 1,000 ML IV SCH (14:39)
[2018-11-19 15:00] VITALS: BP 162/72
--- NOTE | 2018-11-19 15:37 | RAD ---
Examination: CT ABDOMEN PELVIS WO CONTRAST History: Persistent fever, gram-negative bacteremia Comparison/Correlation: 08/08/2017 CT abdomen and pelvis with contrast, 11/07/2018 CT abdomen and pelvis without contrast Findings: Axial images of the abdomen and pelvis were obtained without contrast. Sagittal and coronal reformatted images were provided. Motion limits evaluation on multiple images throughout the exam. Loop recorder device is noted involving the left medial, lower chest wall. Small left pleural effusion is present. Liver, spleen, pancreas, and adrenal glands are unremarkable. A small gallstone is present within the gallbladder. Inferior vena cava filter is present. Right kidney is unremarkable. Left hydronephrosis and hydroureter is present. Evaluation of the hydroureter is limited due to marked streak artifact related to left hip joint prosthesis present. There appears to be a 0.5 cm diameter calculus at the left ureterovesical junction on axial image 114. Punctate densities within the dependent aspect of the urinary bladder which may represent additional calculi also noted. Calculus within the right lateral aspect of the urinary bladder at the dependent aspect appears be present. Rodriguez catheter is in place within the urinary bladder. Urinary bladder is mostly decompressed with circumferential wall thickening. Moderate to large quantity of stool in the colon is present within the colon. Large quantity of stool noted within the distal sigmoid colon and rectum. There is suggestion of right hydroureter. Significant L2 desiccated degenerative disc space narrowing with endplate sclerosis is present. L1-2 disc space narrowing also is present. Marked prostatic calcification noted. Mild prostatomegaly. Impression: Left hydronephrosis and hydroureter which appears to be due to an obstructive calculus at the left ureterovesical junction. Evaluation of the distal ureter is limited due to significant streak artifact related to left hip prosthesis present. Circumferential wall thickening of the left ureter diffusely is similar to prior exam. No significant difference in appearance of the left hydronephrosis and hydroureter compared to the prior exam of 11/07/2018. Urinary bladder calculi also appears be present but evaluation is limited due to streak artifact. Consider ultrasound evaluation of the urinary bladder. Prostatomegaly. Cholelithiasis. Small left pleural effusion. PQRS Compliance Statement: One or more of the following individualized dose reduction techniques were utilized for this examination: 1. Automated exposure control 2. Adjustment of the mA and/or kV according to patient size 3. Use of iterative reconstruction technique Electronically signed by: Norberto Delcid MD (11/19/2018 3:34 PM) [facility]
[2018-11-19 19:03] VITALS: BP 162/72
[2018-11-19] MEDS: TAMSULOSIN 0.4 MG CAP.ER.24H. PO SCH (20:40)
--- NOTE | 2018-11-20 00:59 | PN ---
DATE: 11/19/2018 SUBJECTIVE: The patient is sitting in his chair, eating his lunch comfortably, in no apparent distress. Unfortunately, he continued to spike his temperature. His white cell count if anything is actually going up to 13,000. His blood culture has grown gram-negative rods. The identification and sensitivity is still pending at the time of this dictation. PHYSICAL EXAMINATION: GENERAL: When I examined him, he looked pale, cachectic, but no jaundice, cyanosis, or thyromegaly. No jugular venous distension. No limb edema. VITAL SIGNS: Heart rate was 105, blood pressure was 140/73, temperature was 97.9, respiratory rate was 20, and oxygen saturation was 96%. HEAD, EYES, EARS, NOSE AND THROAT: Showed normocephalic, atraumatic. NECK: Supple. HEART: Showed normal first and second heart sounds. No gallop, rub or murmur. CHEST: Clear to auscultation. No crepitation or rhonchi. ABDOMEN: Scaphoid, soft, nontender. NEUROLOGIC: He was awake, alert, responding appropriately. All cranial nerves intact. He moves extremities without difficulty, although he is mostly bedbound, chair bound. He is able to walk with a walker with assistance. His intake over the last 24 hours was 4000, output was 900. LABORATORY DATA: As of this morning, his white cell count is up to 13,000, hemoglobin was 8.3, hematocrit 25, MCV 83 and platelet count of 69,000. His chemistry showed a serum sodium 138, potassium 4, chloride was 105, bicarbonate 20, anion gap of 13, BUN 16, creatinine 1.7, estimated GFR was 47 mL per minute. His glucose 126, calcium was 8. Total bilirubin is 1.3. AST, ALT were normal. Alkaline phosphatase normal. His total protein was 5.7, albumin was 1.7. ASSESSMENT: 1. In summary, this is an 83-year-old -Citizen Of [place] male patient who was admitted with acute on chronic kidney injury, resolving. His creatinine is down to 1.7. 2. Leukocytosis. Her white cell count is going up again. 3. Bladder outlet obstruction, bilateral hydronephrosis, requiring indwelling Rodriguez catheter. 4. Hypertension, much better controlled. 5. Hyperlipidemia. 6. Right middle cerebral artery territory infarct with left side hemiplegia. 7. Hypokalemia, resolved. 8. Blood culture has shown growth of gram-positive cocci and gram-negative rods. Identification and sensitivity still pending. He also has a questionable hemolysis as his hemoglobin has dropped down. His H and H dropped down from 11 and 32, down to 8 and 25. He has also thrombocytopenia and his platelets are steadily going down from 265 down to 69,000. The most likely culprit is either most likely the Zosyn. PLAN: To await the result of the culture and sensitivity. I will probably discontinue the Zosyn as the most likely culprit for thrombocytopenia as he is not on any heparin. THUY FLORES MD DR: BONG/wolfgang JOB#: [id number] / [id number]
[2018-11-20] MEDS: MEROPENEM 1 GM in IV NORMAL SALINE 100ML 100 ML IV SCH ×2 (02:36→12:16)
[2018-11-20] MEDS: IV 1/2 NORMAL SALINE 1,000 ML IV SCH (02:36)
[2018-11-20 06:00] VITALS: BP 159/77
[2018-11-20 06:17] LABS: BASO # 0.1 x10^3/uL (0.0-0.2); BASO % 0 % (0-3); EOS # 0.1 x10^3/uL (0.0-0.7); EOS % 1 % (0-3); HEMATOCRIT 25.6 % (39.0-53.0); HEMOGLOBIN 8.5 g/dL (13.0-17.5); LYMPH # 0.9 x10^3/uL (1.0-4.8); LYMPH % 6 % (24-48); MEAN CORPUSCULAR HEMOGLOBIN 28 pg (25-35); MEAN CORPUSCULAR HGB CONC 33 g/dL (31-37); MEAN CORPUSCULAR VOLUME 83 fL (79-100); MONO # 0.5 x10^3/uL (0.0-1.1); MONO % 3 % (0-9); NEUT # 13.3 x10^3uL (1.8-7.7); NEUT % 90 % (31-73); PLATELET COUNT 63 x10^3/uL (140-400); RED BLOOD COUNT 3.08 x10^6/uL (4.30-5.70); RED CELL DISTRIBUTION WIDTH 17.2 % (11.5-14.5); WHITE BLOOD COUNT 14.9 x10^3/uL (4.0-11.0)
[2018-11-20 06:19] LABS: CALCIUM 8.1 mg/dL (8.5-10.1); CREATININE 1.7 mg/dL (0.7-1.3); GFR 46.9; POTASSIUM 4.8 mmol/L (3.5-5.1)
[2018-11-20] MEDS: INSULIN LISPRO 300 UNITS/3 ML INSULN.PEN. SQ SCH ×2 (08:00→12:00)
[2018-11-20] MEDS: LACTOBACILLUS RHAMNOSUS GG 1 CAPSULE. PO SCH (08:15)
[2018-11-20] MEDS: LINEZOLID 600 MG TABLET PO SCH (08:15)
[2018-11-20] MEDS: POTASSIUM CHLORIDE 20 MEQ TABLET.ER. PO SCH ×2 (08:15→15:06)
[2018-11-20] MEDS: ASPIRIN 81 MG TAB.CHEW PO SCH (08:15)
[2018-11-20] MEDS: TIMOLOL 0.25% OPHTH SOLUTION 5ML BOTTLE. OU SCH (08:15)
[2018-11-20] MEDS: ATORVASTATIN CALCIUM 20 MG TABLET PO SCH (08:15)
[2018-11-20 11:33] VITALS: BP 163/89
[2018-11-20 15:11] VITALS: BP 168/83
--- NOTE | 2018-11-20 17:19 | DS ---
DATE OF DISCHARGE: 11/20/2018 HOSPITAL COURSE: The patient is an 83-year-old -[place] male patient who was recently admitted to [facility] where he was found to have bilateral hydronephrosis, has had an indwelling Rodriguez catheter placed, and his urine culture grew Escherichia coli, treated initially with ceftriaxone and was discharged to talk to [facility] on oral Augmentin. Unfortunately, the patient continued to spike his temperature, his kidney function also worsened despite the fact he has a catheter in and I did admit him to [facility] and his blood culture has grown gram-negative rods that was identified eventually as Escherichia coli that was grown from his urine culture at [facility]. His white cell count continued to rise. He continued to spike his temperature and therefore, I did repeat a CT scan of the abdomen and pelvis and it did show that he has left high left-sided hydronephrosis and hydroureter, which appeared to be due to an obstructive calculus at the left ureterovesical junction. Evaluation of the distal ureter is limited due to the significant streak artifacts related to left hip prosthesis present. There is some circumferential wall thickening of the left ureteral diffusely, is similar to prior exam. No significant difference in appearance with left hydronephrosis and hydroureter compared to the prior exam. Urinary bladder calculi also appears to be present, but evaluation is limited due to streak artifacts and given that the stone was not detected on the previous CT scan at [facility] that he continued to have persistent gram-negative bacteremia. I did speak with Dr. Velez, the urologist who basically recommended that the patient needs to be transferred to [facility] for cystoscopy and stone retrieval. The patient was treated here initially with the Zosyn and Zyvox given his impaired kidney function and unfortunately, he developed marked thrombocytopenia. In fact, his platelet count has dropped down from 265,000 down to 63,000 and therefore, we discontinued the Zosyn and I started him on meropenem and discontinued the Zyvox also today. PHYSICAL EXAMINATION: GENERAL: When I examined today, he looked well and was clearly in no apparent respiratory distress. He is awake, alert, responding appropriately. The nursing staff did not voice any concern and stated that he has uneventful night. When I examined him, he looked pale, cachectic, but no jaundice, cyanosis, or thyromegaly. No jugular venous distension. No limb edema. VITAL SIGNS: His heart rate was 101, blood pressure 163/89, temperature was 97.7, respiratory rate was 20, and oxygen saturation was 99%. HEAD, EYES, EARS, NOSE, AND THROAT: Showed normocephalic, atraumatic. NECK: Supple. HEART: Showed normal first and second heart sounds. No gallop, rub or murmur. CHEST: Clear to auscultation. No crepitation or rhonchi. ABDOMEN: Distended, soft, nontender. No guarding or rigidity. No organomegaly. All hernial orifices intact. Bowel sounds normal. NEUROLOGIC: He is awake, alert, responding appropriately. All cranial nerves are intact. He has right-sided hemiparesis and indwelling Rodriguez catheter. His intake over the last 24 hours was 2100, output was 1700. LABORATORY DATA: His lab work this morning showed a white cell count 14,900, hemoglobin 8.5, hematocrit 25, MCV 83 and platelet count 63,000. His chemistry showed a serum sodium 139, potassium 4.8, chloride 106, bicarbonate 21, anion gap of 12, BUN 24, creatinine 1.7, estimated GFR was 47 mL per minute, his glucose 137, and calcium was 8.1. DISCHARGE MEDICATIONS: He was transferred back to [facility] to continue on the following medications: Tylenol 650 mg every 6 hours, aspirin 81 mg once a day, atorvastatin 20 mg once a day, polyethylene glycol 17 grams daily, tamsulosin for Flomax 0.4 mg at bedtime and timolol maleate 1 drop to both eyes twice a day. I discontinued his losartan and amoxicillin potassium clavulanate. FINAL DISCHARGE DIAGNOSES: 1. Acute on chronic kidney injury. His creatinine is down from 2.5 to 1.7. 2. Leukocytosis continued to be high. 3. Bladder outlet obstruction, bilateral hydronephrosis that required a Rodriguez catheter. 4. Obstructive stone at the left ureterovesical junction 5. Resistant gram-negative bacteremia. 6. Thrombocytopenia, side effect of probably Zosyn. 7. Hypertension. 8. Hyperlipidemia. 9. Right middle cerebral artery territory infarct with left side hemiplegia. The plan is for him to be transferred to [facility] with a view of doing cystoscopy and stone retrieval. THUY FLORES MD DR: Camron JOB#: [id number] / [id number]
== END 2018-11-20 15:35 | disposition short-term general hospital (02) | DRG 871 ==
LOC: ICU 16:40 → 1 SOUTH 11-20 06:07
PROVIDERS: ADMIT Internal Medicine; ATTEND Internal Medicine
DX: A41.9 Sepsis, unspecified organism (principal); N17.0 Acute kidney failure with tubular necrosis; R47.01 Aphasia; N39.0 Urinary tract infection, site not specified; N13.30 Unspecified hydronephrosis; I69.354 Hemiplegia and hemiparesis following cerebral infarction affecting left non-dominant side; B96.20 Unspecified Escherichia coli [E. coli] as the cause of diseases classified elsewhere; B96.89 Other specified bacterial agents as the cause of diseases classified elsewhere; D69.6 Thrombocytopenia, unspecified; E78.5 Hyperlipidemia, unspecified; Z96.642 Presence of left artificial hip joint; E87.6 Hypokalemia; I12.9 Hypertensive chronic kidney disease with stage 1 through stage 4 chronic kidney disease, or unspecified chronic kidney disease; N18.9 Chronic kidney disease, unspecified; N32.0 Bladder-neck obstruction; Z80.3 Family history of malignant neoplasm of breast; Z80.42 Family history of malignant neoplasm of prostate; Z85.46 Personal history of malignant neoplasm of prostate; Z87.891 Personal history of nicotine dependence; Z98.41 Cataract extraction status, right eye; Z98.42 Cataract extraction status, left eye; Z79.899 Other long term (current) drug therapy
CPT/HCPCS: 36415; 71045; 74176; 80048; 80053; 81001; 82947; 85025; 85027; 87040; 87077; 87086; 87205; 87641; J1815; J2020; J2185; J2543; J7030; 97110; 97116; 97530